=== PATIENT | female | born 1945 | race Caucasian/White ===

== ENCOUNTER 2017-12-31 17:06 | Inpatient (IN) | payer OTHER ==
--- NOTE | 2017-12-31 18:03 | PDOC ---
History of Present Illness - History of Present Illness Initial Comments: 12/31/17 18:47 The patient is a 72 year old with a significant past medical history of diabetes and asthma who presents to the ED for evaluation of lower extremity edema. The patient reports a 2 day history of bilateral calf and feet edema. She denies any previous history of lower extremity edema. She denies any trauma or injuries. Reports swelling is worse after standing for a while, and improves with elevation. Pt also reports pain to left great toe and second toe secondary to her toenails being cut too low. Denies trauma. The patient states her concern for her lower extremity swelling prompted her to visit the ED for further evaluation. Pt denies any other complaints of cp, sob, headache, dizziness, F/C, N/V, and any bowel/urinary symptoms. Denies recent travel or immobilization. Denies calf pain. Allergies: Penicillins Social History: No reported alcohol, cigarette, or drug use. Surgical History: 3 stents. PCP: None. <Ken Sterling - Last Filed: 12/31/17 18:50> <Kavita Norton - Last Filed: 12/31/17 22:01> <Janel Hagan - Last Filed: 01/01/18 00:09> - General Chief Complaint: Pain Stated Complaint: PAIN TO LEFT GREAT TOE AND SECOND TOE AND LEG SWE Time Seen by Provider: 12/31/17 17:16 Past History - Past Medical History Asthma: Yes COPD: No Diabetes: Yes - Immunization History Immunization Up to Date: No - Suicide/Smoking/Psychosocial Hx Smoking History: Never smoked Have you smoked in the past 12 months: No Information on smoking cessation initiated: No Hx Alcohol Use: No Drug/Substance Use Hx: No Substance Use Type: None <Ken Sterling - Last Filed: 12/31/17 18:50> <Kavita Norton - Last Filed: 12/31/17 22:01> <Janel Hagan - Last Filed: 01/01/18 00:09> - Past Medical History Allergies/Adverse Reactions: Allergies Allergy/AdvReac Type Severity Reaction Status Date / Time Penicillins Allergy Hives Verified 12/31/17 17:09 Home Medications: Ambulatory Orders Insulin Degludec [Tresiba Flextouch U-100] 70 unit SQ DAILY 12/31/17 Lovastatin 10 mg PO DAILY 12/31/17 Ramipril 10 mg PO DAILY 12/31/17 Review of Systems - Review of Systems Comments:: 12/31/17 18:47 GENERAL/CONSTITUTIONAL: No fever or chills. No weakness. HEAD, EYES, EARS, NOSE AND THROAT: No change in vision. No ear pain or discharge. No sore throat. GASTROINTESTINAL: No nausea, vomiting, diarrhea or constipation. GENITOURINARY: No dysuria, frequency, or change in urination. CARDIOVASCULAR: No chest pain or shortness of breath. RESPIRATORY: No cough, wheezing, or hemoptysis. MUSCULOSKELETAL: (+)Bilateral calf and feet swelling. (+)Left great toe pain. (+ )Left second toe pain. No neck or back pain. SKIN: No rash NEUROLOGIC: No headache, vertigo, loss of consciousness, or change in strength/ sensation. ENDOCRINE: No increased thirst. No abnormal weight change. HEMATOLOGIC/LYMPHATIC: No anemia, easy bleeding, or history of blood clots. ALLERGIC/IMMUNOLOGIC: No hives or skin allergy. <Nassef,Yomna - Last Filed: 12/31/17 18:50> *Physical Exam - Vital Signs Last Vital Signs Temp Pulse Resp BP Pulse Ox 98 F 92 H 16 157/56 98 12/31/17 17:09 12/31/17 17:09 12/31/17 17:09 12/31/17 17:09 12/31/17 17:09 - Physical Exam Comments: 12/31/17 18:48 GENERAL: Sleeping in stretcher, arousable, well groomed, in no acute distress EYES: PERRLA, EOMI, sclera anicteric, conjunctiva clear NECK: Normal ROM, supple, no lymphadenopathy, JVD, or masses LUNGS: Breath sounds equal, clear to auscultation bilaterally. No wheezes, and no crackles HEART: Regular rate and rhythm, normal S1 and S2, no murmurs, rubs or gallops ABDOMEN: Soft, nontender, normoactive bowel sounds. No guarding, no rebound. No masses EXTREMITIES: 1+ pitting edema bilaterally to proximal calf, symmetric. No calf tenderness. 2+ peripheral pulses. No deformities or evidence of trauma. NEUROLOGICAL: Normal speech, cranial nerves intact, 5/5 strength in all 4 extremities, normal sensation to light touch in all 4 extremities, normal cerebellar exam, normal gait, normal reflexes and tone SKIN: Warm, Dry, normal turgor, no rashes or lesions noted. <NataliashaniceKen - Last Filed: 12/31/17 18:50> - Vital Signs Last Vital Signs Temp Pulse Resp BP Pulse Ox 98 F 87 18 137/57 97 12/31/17 17:09 12/31/17 21:24 12/31/17 21:24 12/31/17 21:24 12/31/17 21:24 <Kavita Norton - Last Filed: 12/31/17 22:01> - Vital Signs Last Vital Signs Temp Pulse Resp BP Pulse Ox 98 F 92 H 16 157/56 98 12/31/17 17:09 12/31/17 17:09 12/31/17 17:09 12/31/17 17:09 12/31/17 17:09 <Janel Hagan - Last Filed: 01/01/18 00:09> ED Treatment Course - ADDITIONAL ORDERS Additional order review: Laboratory Results 12/31/17 12/31/17 12/31/17 08:30 08:30 08:30 PTT (Actin FS) 26.9 Creatine Kinase 163 Creatine Kinase Index 2.8 CK-MB (CK-2) 4.7 H Troponin I < 0.03 12/31/17 08:15 PTT (Actin FS) Creatine Kinase Creatine Kinase Index CK-MB (CK-2) Troponin I 0.09 H - Medications Given in the ED: ED Medications Discontinued Medications Generic Name Dose Route Start Last Admin Trade Name Topher PRN Reason Stop Dose Admin Aspirin 162 mg 12/31/17 20:09 12/31/17 20:15 Asa - PO 12/31/17 20:10 162 mg ONCE ONE Administration Enoxaparin Sodium 80 mg 12/31/17 20:47 12/31/17 21:11 Lovenox - SQ 12/31/17 20:48 80 mg ONCE ONE Administration Metoprolol Tartrate 50 mg 12/31/17 21:17 12/31/17 21:25 Lopressor - PO 12/31/17 21:18 50 mg ONCE ONE Administration <Kavita Norton - Last Filed: 12/31/17 22:01> - ADDITIONAL ORDERS Additional order review: Laboratory Results 12/31/17 12/31/17 08:30 08:15 PTT (Actin FS) 26.9 Troponin I 0.09 H - RADIOLOGY Radiology Studies Ordered: Category Date Time Status CHEST PA & LAT [RAD] Stat Radiology 12/31/17 20:09 Taken - Medications Given in the ED: ED Medications Discontinued Medications Generic Name Dose Route Start Last Admin Trade Name Topher PRN Reason Stop Dose Admin Aspirin 162 mg 12/31/17 20:09 12/31/17 20:15 Asa - PO 12/31/17 20:10 162 mg ONCE ONE Administration Enoxaparin Sodium 80 mg 12/31/17 20:47 12/31/17 21:11 Lovenox - SQ 12/31/17 20:48 80 mg ONCE ONE Administration <Janel Hagan - Last Filed: 01/01/18 00:09> Medical Decision Making - Medical Decision Making 12/31/17 18:10 72yo F hx DM presents to the ED with b/l LE edema for 2 days. Vitals wnl. Exam with 1+ LE symmetric pitting edema to the proximal calves. DDx includes DVT although unlikely b/l vs venous stasis. Will obtain US to r/o DVT and reassess. 12/31/17 19:00 US pending. Pt sleeping comfortably, well appearing Case signed out to overnight attending for further mgmt and dispo. <Ken Sterling - Last Filed: 12/31/17 18:50> - Medical Decision Making Dr. Hagan discussed the case with Dr. Vivar at 21:58. <Kavita Norton - Last Filed: 12/31/17 22:01> - Medical Decision Making 01/01/18 00:05 Pt was signed out to me. Tells me that she has bilat pitting edema. She has never experienced this in the past. Dopplers bilaterally ruled out DVT. Pt's labs that were drawn at her endocrinologists' today were normal. EKG was done, and shows ST depression in V3-V6. She has +troponin 0.09 that was added onto this Afternoon's blood test by the producer arborist manager. Repeat blood troponin at 8:30PM was 0.03 -- trending downwards. Pt will be admitted to telelmetry unit for Acute FL. Hospitalist aware and Cards aware. <Janel Hagan - Last Filed: 01/01/18 00:09> *DC/Admit/Observation/Transfer <Ken Sterling - Last Filed: 12/31/17 18:50> <Kavita Norton - Last Filed: 12/31/17 22:01> - Discharge Dispostion Decision to Admit order: Yes <Janel Hagan - Last Filed: 01/01/18 00:09> Diagnosis at time of Disposition: Myocardial infarction acute, Bilateral leg edema - Discharge Dispostion Condition at time of disposition: Guarded
[2017-12-31] MEDS ORDERED: ASPIRIN 81 MG CHEWABLE TABLETS PO ONE (20:09)
[2017-12-31] MEDS ORDERED: ASPIRIN 81 MG CHEWABLE TABLETS ONE (20:14)
[2017-12-31] MEDS ORDERED: ENOXAPARIN NA (PORCINE) 80 MG/0.8 ML DISP.SYRIN SQ ONE (20:47)
[2017-12-31] MEDS ORDERED: ENOXAPARIN NA (PORCINE) 100 MG/1 ML DISP.SYRIN SQ ONE (21:08)
[2017-12-31] MEDS ORDERED: METOPROLOL TARTRATE 50 MG TABLET (FP) PO ONE (21:17)
[2017-12-31] MEDS ORDERED: METOPROLOL TARTRATE 50 MG TABLET (FP) ONE (21:25)
[2017-12-31] MEDS ORDERED: ATORVASTATIN CA 80 MG TABLET (FP) PO ONE (22:02)
[2017-12-31] MEDS ORDERED: ATORVASTATIN CA 80 MG TABLET (FP) ONE (22:05)
--- NOTE | 2017-12-31 22:06 | CON.CARD ---
Consult Consult Specialty:: cardiology Reason for Consultation:: chest pain; bilateral LE edema; EKG changes; + TNI - History of Present Illness Chief Complaint: new bilateral leg edema; intermittent chest pain History of Present Illness: The patient is a 72 year old woman with a significant past medical history of diabetes, asthma, CAD--> 3 stents (pt says they were down at the same time; includied RAC DE stent 2006 at [facility]), obesity, HTN, hyperlipidemia, who presents to the ED for evaluation of lower extremity edema. The patient reports a 2 day history of bilateral calf and feet edema. She denies any previous history of lower extremity edema. She denies any trauma or injuries. Reports swelling is worse after standing for a while, and improves with elevation. Pt also reports pain to left great toe and second toe secondary to her toenails being cut too low. Denies trauma. The patient states her concern for her lower extremity swelling prompted her to visit the ED for further evaluation. Pt denies any other complaints of cp, sob, headache, dizziness, F/C , N/V, and any bowel/urinary symptoms. Denies recent travel or immobilization. Denies calf pain. Pt is presently living out of her car. Allergies: Penicillins Social History: No reported alcohol, cigarette, or drug use. Surgical History: 3 stents. PCP: None. - History Source History Provided By: Patient, Medical Record Limitations to Obtaining History: No Limitations - Past Medical History Cardio/Vascular: Yes: HTN Reproductive: Yes: Postmenopausal ...: No - Alcohol/Substance Use Hx Alcohol Use: No - Smoking History Smoking history: Never smoked Have you smoked in the past 12 months: No Home Medications - Allergies Allergies/Adverse Reactions: Allergies Allergy/AdvReac Type Severity Reaction Status Date / Time Penicillins Allergy Hives Verified 12/31/17 17:09 - Home Medications Home Medications: Ambulatory Orders Insulin Degludec [Tresiba Flextouch U-100] 70 unit SQ DAILY 12/31/17 Lovastatin 10 mg PO DAILY 12/31/17 Ramipril 10 mg PO DAILY 12/31/17 Family Disease History - Family Disease History Family Disease History: Diabetes: Father, Mother (parents had MIs in their 70s) , Heart Disease: Father, Mother Review of Systems - Review of Systems Constitutional: reports: No Symptoms Eyes: reports: No Symptoms HENT: reports: No Symptoms Neck: reports: No Symptoms Cardiovascular: reports: Chest Pain, Shortness of Breath Respiratory: reports: SOB Gastrointestinal: reports: No Symptoms Genitourinary: reports: No Symptoms Breasts: reports: No Symptoms Reported Musculoskeletal: reports: Joint Pain (knees) Integumentary: reports: No Symptoms Neurological: reports: No Symptoms Hematology/Lymphatic: reports: No Symptoms Psychiatric: reports: No Symptoms - Risk Factors Known Risk Factors: Yes: Age, Diabetes Mellitus, Family History, Hypercholesterolemia, Hypertension, Physical Inactivity, Smoking (former) Vital Signs: Vital Signs Temperature 98 F 12/31/17 17:09 Pulse Rate 87 12/31/17 21:24 Respiratory Rate 18 12/31/17 21:24 Blood Pressure 137/57 12/31/17 21:24 O2 Sat by Pulse Oximetry (%) 97 12/31/17 21:24 Constitutional: Yes: Calm Eyes: Yes: WNL HENT: Yes: WNL Neck: Yes: WNL Respiratory: Yes: Regular Gastrointestinal: Yes: Soft Renal/: No: Anuria Cardiovascular: Yes: WNL JVD: No Carotid Bruit: No PMI: Non-Displaced Heart Sounds: Yes: S1, S2 Murmur: Yes: Systolic Murmur, Grade 1 Musculoskeletal: Yes: Joint Stiffness, Muscle Weakness Extremities: Yes: Cool Edema: Yes Edema: LLE: 1+, RLE: 1+ Peripheral Pulses WNL: Yes Integumentary: Yes: WNL Neurological: Yes: WNL Psychiatric: Yes: Alert, Oriented - Other Data Labs, Other Data: Troponin, BNP 12/31/17 12/31/17 08:15 08:30 Troponin I 0.09 H < 0.03 Troponin, BNP 12/31/17 12/31/17 08:15 08:30 Troponin I 0.09 H < 0.03 Prior Cardiac Procedures: Cardiac Catheterization, PTCA with Stent (RCA: 2007) Imaging - Results Chest X-ray: Image Reviewed (no acute ijnfiltrate) Problem List - Problems (1) Elevated troponin Assessment/Plan: TNI 0.09 (at 08:15)-->0.03 (at 20:05, per medical laboratory technical officer: entered initially in error as being drawn at 08:30). CK on 2nd TNI 163, with MB relative index 2.8; await CK on initial TNI. EKG: NSR, 1st degree AVB; ST depression V3-V6 (r/o lateral wall ischemia). Hx CAD, with "3 stents". R/O NSTEMI, ACS with unstable angina; acute CHF may also contribute to rise in TNI. Plan: ASA 325 mg once, then 81 mg daily. IV heparin or sc Lovenox. Clopidogrel 75 mg daily. On metoprolol (if true hx of bronchial asthma or brochospasm, may have to discontinue beta blockers). Continue ACEI (reportedly on ramipril). High-dose atorvastatin. Transfer to [facility] telemetry or ICU. Serial TNI, CK, and EKGs. ECHO for LVEF, regional wall motion, valve status. Coronary artery evaluation: diagnostic studies depending on evolution of coronary syndrome. Code(s): R74.8 - ABNORMAL LEVELS OF OTHER SERUM ENZYMES (2) Diabetes Assessment/Plan: continue ACEI (pt reportedly on ramipril) for HTN, CAD, and DM (renal protection ). Glucose 134; HGBA1c pending. Code(s): E11.9 - TYPE 2 DIABETES MELLITUS WITHOUT COMPLICATIONS (3) Obesity Code(s): E66.9 - OBESITY, UNSPECIFIED (4) Hyperlipidemia Assessment/Plan: Start high-dose atorvastatin (elevated triglycerides and LDL; + TNI; EKG changes ). Code(s): E78.5 - HYPERLIPIDEMIA, UNSPECIFIED (5) Leukocytosis Assessment/Plan: f/u WBC serially. Code(s): D72.829 - ELEVATED WHITE BLOOD CELL COUNT, UNSPECIFIED (6) Bilateral leg edema Assessment/Plan: LE venous duplex negative for DVT. ECHO for LVEF, wall motion. CHF workup: BNP, BUN/Cr, electrolytes, daily weight, Is and Os. Continue ACEI; diuretic if needed. Code(s): R60.0 - LOCALIZED EDEMA (7) Asthma Code(s): J45.909 - UNSPECIFIED ASTHMA, UNCOMPLICATED (8) HTN (hypertension) Assessment/Plan: On metoprolol (if true bronchial asthma, may need to stop this medications; otherwise, give metoprolol tartrate bid for better 24 hour coverage). Continue ramipril (reportedly on as outpatient; hx HTN, CAD, DM). Code(s): I10 - ESSENTIAL (PRIMARY) HYPERTENSION
[2017-12-31] MEDS ORDERED: HEMOQUE TEST 1 EACH EACH ONE (23:29)
[2018-01-01] MEDS ORDERED: CLOPIDOGREL BISULFATE 300 MG TABLET PO ONE (02:24)
[2018-01-01] MEDS ORDERED: ASPIRIN 81 MG CHEWABLE TABLETS PO ONE (02:26)
--- NOTE | 2018-01-01 04:12 | PN ---
Teaching Attending Note Name of Resident: Emerita Wright ATTENDING PHYSICIAN STATEMENT I saw and evaluated the patient. Chart, data, imaging reviewed. I reviewed the resident's note and discussed the case with the resident. I agree with the resident's findings and plan as documented. SUBJECTIVE: 72 year old woman with a significant past medical history of diabetes, asthma, CAD s/p 3 stents, obesity, HTN, hyperlipidemia. She was sent from [place] to [facility] for suspiscion of NSTEMI and need for telemetry. Pt initially c/o some swelling to her legs for about 3 days and that prompted her to come to ER. She c/o also of some vague shortness of breath and left shoulder pain. OBJECTIVE: Last Vital Signs Temp Pulse Resp BP Pulse Ox 98 F 87 18 137/57 97 12/31/17 17:09 12/31/17 21:24 12/31/17 21:24 12/31/17 21:24 12/31/17 21:24 general- nad, obese heent -at, moist oral mucosa neck -supple, no jvd cv-s1+s2+rrr chest -cta abdomen- obese, bs+ ext-no pedal edema Abnormal Lab Results 12/31/17 12/31/17 12/31/17 08:15 08:30 08:30 CK-MB (CK-2) 4.7 H Troponin I 0.09 H B-Natriuretic Peptide 428.85 H EKG reviewed by me, showed some ST depressions in V3-V6 CXR -reviewed. ASSESSMENT AND PLAN: 72yo woman with possible NSTEMI given +troponin and ST depressions in leads mentioned above -admit to telemetry -trend troponin -transthoracic echo -serial EKGs -cardiology evaluation -NG sublingual prn -bblocker -high dose statin -ASA 325mg po stat, then 81mg po daily -clopidogrel 75mg po daily -lovenox therapeutic dose -see resident note for details cardiac diet
[2018-01-01 04:23] VITALS: BMI 31.2
[2018-01-01] MEDS: INSULIN SLIDING SCALE (NOVOLOG) 1 VIAL SQ SCH ×4 (06:59→21:26)
[2018-01-01 08:03] LABS: HEMATOCRIT 37.1 % (32.4-45.2); HEMOGLOBIN 12.3 GM/dL (10.7-15.3); MCH 28.6 pg (25.7-33.7); MCHC 33.2 g/dl (32.0-36.0); MEAN CELL VOLUME 86.2 fl (80-96); MEAN PLT VOLUME 10.7 fl (7.5-11.1); PLATELET COUNT 245 K/MM3 (134-434); WHITE BLOOD COUNT 6.9 K/mm3 (4.0-10.0)
[2018-01-01 08:18] LABS: CHLORIDE 107 mmol/L (98-107); SODIUM 143 mmol/L (136-145)
[2018-01-01] MEDS ORDERED: NITROGLYCERIN SUBLINGUAL 1/150 0.4 MG TAB ONE (08:30)
[2018-01-01 08:34] LABS: ANION GAP 9 (8-16); BLOOD UREA NITROGEN 14 mg/dL (7-18); CALCIUM 9.8 mg/dL (8.5-10.1); CO2 27 mmol/L (21-32); CREATININE 0.6 mg/dL (0.55-1.02); GLUCOSE,RANDOM 86 mg/dL (74-106)
[2018-01-01 08:44] LABS: MAGNESIUM 2.3 mg/dL (1.8-2.4)
[2018-01-01 08:45] LABS: POTASSIUM 4.5 mmol/L (3.5-5.1)
[2018-01-01] MEDS ORDERED: PT OWN MED DRAWER 7, Y5N ONE (09:31)
[2018-01-01] MEDS: ENOXAPARIN NA (PORCINE) 80 MG/0.8 ML DISP.SYRIN SQ SCH ×2 (09:33→21:06)
[2018-01-01] MEDS: ASPIRIN COATED 81 MG TABLET.EC PO SCH (09:34)
[2018-01-01] MEDS ORDERED: CLOPIDOGREL BISULFATE 75 MG TABLET (FP) PO SCH (10:00)
[2018-01-01] MEDS ORDERED: PNEUMOC 13-VAL CONJ-DIP CRM/PF 0.5 ML DISP.SYRIN IM ONE (10:00)
--- NOTE | 2018-01-01 11:15 | PN ---
Progress Note, Physician Chief Complaint: Pt A&Ox3; had central chest tightness (moderate intensity) earlier this morning , lasting a few minutes. This has occurred a number of times over the past few weeks, both at rest and with exertion. She has a "bad left shoulder", but says this pain is different. History of Present Illness: The patient is a 72 year old white woman with a significant past medical history of diabetes, asthma, CAD--> 3 stents (pt says they were done at the same time; included RCA DE stent 2006 at [facility]), obesity, HTN, hyperlipidemia, who presents to the ED for evaluation of lower extremity edema. The patient reports a 2 day history of bilateral calf and feet edema. She denies any previous history of lower extremity edema. She denies any trauma or injuries. Reports swelling is worse after standing for a while, and improves with elevation. Pt also reports pain to left great toe and second toe secondary to her toenails being cut too close. The patient states her concern for her lower extremity swelling prompted her to visit the ED for further evaluation. Pt denies any other complaints of cp, sob, headache, dizziness, F/C, N/V, and any bowel/urinary symptoms. Denies recent travel or immobilization. Denies calf pain. Pt is presently living out of her car. Allergies: Penicillins Social History: No reported alcohol, cigarette, or drug use. Surgical History: ?3 coronary stents. PCP: None. - Current Medication List Current Medications: Active Medications Aspirin (Ecotrin -) 81 mg PO DAILY [facility] Last Admin: 01/01/18 09:34 Dose: 81 mg Atorvastatin Calcium (Lipitor -) 40 mg PO [facility] Clopidogrel Bisulfate (Plavix -) 75 mg PO DAILY [facility] Last Admin: 01/01/18 09:33 Dose: 75 mg Enoxaparin Sodium (Lovenox -) 80 mg SQ BID [facility] Last Admin: 01/01/18 09:33 Dose: 80 mg Insulin Aspart (Novolog Vial Sliding Scale -) 1 vial SQ ACHS [facility]; Protocol Last Admin: 01/01/18 06:59 Dose: Not Given - Objective Vital Signs: Vital Signs Temperature 98.3 F 01/01/18 08:00 Pulse Rate 92 H 01/01/18 08:00 Respiratory Rate 17 01/01/18 08:36 Blood Pressure 124/59 01/01/18 08:00 O2 Sat by Pulse Oximetry (%) 97 01/01/18 08:36 Constitutional: Yes: Calm Eyes: Yes: WNL HENT: Yes: WNL Neck: Yes: WNL Cardiovascular: Yes: Regular Rate and Rhythm, S1, S2 Respiratory: Yes: Regular Gastrointestinal: Yes: Soft ...Rectal Exam: Yes: Deferred Genitourinary: No: Anuria Breast(s): Yes: WNL Musculoskeletal: Yes: WNL Extremities: Yes: Other Edema: No Peripheral Pulses WNL: Yes Neurological: Yes: WNL Psychiatric: Yes: WNL Labs: CBC, BMP 01/01/18 06:30 01/01/18 06:30 Abnormal Lab Results 12/31/17 01/02/18 01/02/18 08:15 05:30 05:30 Chloride 109 H Anion Gap 7 L BUN 19 H Random Glucose 116 H Hemoglobin A1c % 7.8 H Troponin I 0.09 H Triglycerides 197 H Cholesterol 201 H Problem List - Problems (1) Elevated troponin Assessment/Plan: TNI 0.09 (at 08:15)-->0.03 (at 20:05, per warehouse general laborer: entered initially in error as being drawn at 08:30). CK on 2nd TNI 163, with MB relative index 2.8; await CK on initial TNI. EKG: NSR, 1st degree AVB; ST depression V3-V6 (r/o lateral wall ischemia). Hx CAD, with "3 stents". R/O NSTEMI, ACS with unstable angina; acute CHF may also contribute to mild rise in TNI. Plan: ASA 325 mg once, then 81 mg daily. IV heparin or sc Lovenox. Clopidogrel 75 mg daily; may change to Brilinta. On metoprolol (if true hx of bronchial asthma or brochospasm, may have to discontinue beta blockers; so far no adverse reaction to metoprolol). Continue ACEI (reportedly on ramipril). High-dose atorvastatin. Transfer to [facility] telemetry or ICU. Serial TNI, CK, and EKGs. ECHO for LVEF, regional wall motion, valve status. Coronary artery evaluation: diagnostic studies depending on evolution of coronary syndrome. Code(s): R74.8 - ABNORMAL LEVELS OF OTHER SERUM ENZYMES (2) Diabetes Assessment/Plan: continue ACEI (pt reportedly on ramipril) for HTN, CAD, and DM (renal protection ). Glucose 134; HGBA1c pending. Code(s): E11.9 - TYPE 2 DIABETES MELLITUS WITHOUT COMPLICATIONS (3) Obesity Code(s): E66.9 - OBESITY, UNSPECIFIED (4) Hyperlipidemia Code(s): E78.5 - HYPERLIPIDEMIA, UNSPECIFIED (5) Leukocytosis Code(s): D72.829 - ELEVATED WHITE BLOOD CELL COUNT, UNSPECIFIED (6) Bilateral leg edema Code(s): R60.0 - LOCALIZED EDEMA (7) Asthma Code(s): J45.909 - UNSPECIFIED ASTHMA, UNCOMPLICATED (8) HTN (hypertension) Code(s): I10 - ESSENTIAL (PRIMARY) HYPERTENSION
[2018-01-01] MEDS: RAMIPRIL 2.5 MG CAPSULE (FP) PO SCH (11:27)
--- NOTE | 2018-01-01 12:21 | PN ---
Progress Note (short form) - Note Progress Note: c/o CP that started at rest this AM that relived with NTG. states she has been having this for several months and her doctor was said it was arm pain. Pain is always at rest and was not radiating anywhere assoc with diaphoresis. states what prompted her to the ER was leg swelling. has also been having dyspnea on exertion but unable to quantify how far she walks till she gets symptoms. denies fever, chills, N/V/C/D, weight loss. states she stopped taking plavix because of epistaxis, is willing to try another similar medication but does not want to be on plavix. Current Medications Generic Name Dose Route Start Last Admin Trade Name Mohsenq PRN Reason Stop Dose Admin Aspirin 81 mg 01/01/18 10:00 01/01/18 09:34 Ecotrin - PO 81 mg DAILY [facility] Administration Atorvastatin Calcium 80 mg 01/01/18 22:00 Lipitor - PO HS [facility] Clopidogrel Bisulfate 75 mg 01/01/18 10:00 01/01/18 09:33 Plavix - PO 75 mg DAILY [facility] Administration Enoxaparin Sodium 80 mg 01/01/18 10:00 01/01/18 09:33 Lovenox - SQ 80 mg BID [facility] Administration Insulin Aspart 1 vial 01/01/18 07:00 01/01/18 11:27 Novolog Vial Sliding Scale - SQ Not Given ACHS [facility] Protocol Ramipril 2.5 mg 01/01/18 11:15 01/01/18 11:27 Altace - PO 2.5 mg DAILY [facility] Administration Last Vital Signs Temp Pulse Resp BP Pulse Ox 98.3 F 92 H 17 124/59 97 01/01/18 08:00 01/01/18 08:00 01/01/18 08:36 01/01/18 08:00 01/01/18 08:36 General NAD CV S1 S2 RRR no murmrur/rub/gallop +chest wall tenderness Lungs CTA B/L no wheezing/rales/rhonchi Abdomen soft NT/ND obese Extremities 1+ pitting edema RLE trace LLE CBCD WBC 6.9 K/mm3 (4.0-10.0) 01/01/18 06:30 RBC 4.30 M/mm3 (3.60-5.2) 01/01/18 06:30 Hgb 12.3 GM/dL (10.7-15.3) 01/01/18 06:30 Hct 37.1 % (32.4-45.2) 01/01/18 06:30 MCV 86.2 fl (80-96) 01/01/18 06:30 MCHC 33.2 g/dl (32.0-36.0) 01/01/18 06:30 RDW 14.0 % (11.6-15.6) 01/01/18 06:30 Plt Count 245 K/MM3 (134-434) 01/01/18 06:30 MPV 10.7 fl (7.5-11.1) 01/01/18 06:30 CMP Sodium 143 mmol/L (136-145) 01/01/18 06:30 Potassium 4.5 mmol/L (3.5-5.1) 01/01/18 06:30 Chloride 107 mmol/L (98-107) 01/01/18 06:30 Carbon Dioxide 27 mmol/L (21-32) 01/01/18 06:30 Anion Gap 9 (8-16) 01/01/18 06:30 BUN 14 mg/dL (7-18) 01/01/18 06:30 Creatinine 0.6 mg/dL (0.55-1.02) 01/01/18 06:30 Creat Clearance w eGFR > 60 (>60) 01/01/18 06:30 Calcium 9.8 mg/dL (8.5-10.1) 01/01/18 06:30 A/P 72yo F with PMH DM, HTN, dyslipidemia and CAD s/p 3 stents presented to the ER with B/L LE swelling and found to have NSTEMI 1. NSTEMI- Troponin peaked at 0.09 and now trending down. on full dose lovenox. does not want plavix although she has had no epistaxis since being here. will d/ w cardio about switching to trial of brilinta, on asa, statin, acei. would benefit from cardiac cath after 72H of treatment. will need to verify pt is willing to be compliant with medications. echo pending. continuosu cardiac monitoring 2. B/L edema- as per pt has improved without treatment. doppler negative for DVT 3. DM- controlled. has not required coverage. cont diabetic diet, bgm, iss. hold tresiba 4. Dyspnea- possible due to NSTEMI. does not appear to be in volume overload. saturating well on RA> monitor 5. HTN- controlled. 6. DVT ppx- full dose lovenox Visit type - Emergency Visit Emergency Visit: Yes ED Registration Date: 01/01/18 Care time: The patient presented to the Emergency Department on the above date and was hospitalized for further evaluation of their emergent condition. - New Patient This patient is new to me today: Yes Date on this admission: 01/01/18 - Critical Care Critical Care patient: No - Discharge Referral Referred to [facility] No
--- NOTE | 2018-01-01 14:41 | EKG ---
Test Reason : Blood Pressure : / mmHG Vent. Rate : 091 BPM Atrial Rate : 091 BPM P-R Int : 224 ms QRS Dur : 108 ms QT Int : 404 ms P-R-T Axes : 081 066 091 degrees QTc Int : 496 ms SINUS RHYTHM WITH 1ST DEGREE A-V BLOCK INCOMPLETE RIGHT BUNDLE BRANCH BLOCK PROLONGED QT ABNORMAL ECG WHEN COMPARED WITH ECG OF 01-JAN-2018 02:56, ST NOW DEPRESSED IN ANTERIOR LEADS T WAVE INVERSION NO LONGER EVIDENT IN LATERAL LEADS Confirmed by Shaquille Mcdaniel ([id number]) on 01/01/2018 2:40:37 PM Referred By: Sandee BASS Confirmed By:Shaquille Mcdaniel
--- NOTE | 2018-01-01 14:42 | EKG ---
Test Reason : Blood Pressure : / mmHG Vent. Rate : 084 BPM Atrial Rate : 084 BPM P-R Int : 244 ms QRS Dur : 106 ms QT Int : 382 ms P-R-T Axes : 069 060 123 degrees QTc Int : 451 ms SINUS RHYTHM WITH 1ST DEGREE A-V BLOCK INCOMPLETE RIGHT BUNDLE BRANCH BLOCK ABNORMAL ECG WHEN COMPARED WITH ECG OF 31-DEC-2017 19:57, QUESTIONABLE CHANGE IN QRS AXIS ST NO LONGER DEPRESSED IN ANTERIOR LEADS NONSPECIFIC T WAVE ABNORMALITY, IMPROVED IN INFERIOR LEADS T WAVE INVERSION MORE EVIDENT IN LATERAL LEADS Confirmed by Shaquille Mcdaniel ([id number]) on 01/01/2018 2:41:57 PM Referred By: Samanta MARTINEZ Confirmed By:Shaquille Mcdaniel
--- NOTE | 2018-01-01 15:48 | HP ---
Admitting History and Physical - Admission Chief Complaint: Leg swelling History of Present Illness: Pt is a 72 yo F with a signif PMHx of DM, Asthma, HTN, HLD, CADx3 stents (done at the same time) obesity, who presented to [place] ED for LE edema and pain. The pt describes a history of bilateral calf and feet swelling x2 days. Reports swelling is worse after standing for a while, and improves with elevation. Pt reports left first and second toe pain and swelling after her toenails were cut too low. She reports having severe pressure-like chest pain about 2 days prior that self resolved. In the ED she was noted to have EKG changes and elevated trops, was started on lovenox and and transferred to [facility]. She denies current chest pain, SOB, diaphoresis, n/v or syncope or cough , but acknowledges L arm pain. History Source: Patient, Medical Record Limitations to Obtaining History: No Limitations - Past Medical History Cardiovascular: Yes: CAD (3 prior stents), HTN Pulmonary: Yes: Asthma ...: No - Smoking History Smoking history: Never smoked Have you smoked in the past 12 months: No If you are a former smoker, when did you quit?: 2002 - Alcohol/Substance Use Hx Alcohol Use: No Home Medications - Allergies Allergies/Adverse Reactions: Allergies Allergy/AdvReac Type Severity Reaction Status Date / Time Penicillins Allergy Hives Verified 12/31/17 17:09 - Home Medications Home Medications: Ambulatory Orders Insulin Degludec [Tresiba Flextouch U-100] 70 unit SQ DAILY 12/31/17 Lovastatin 10 mg PO DAILY 12/31/17 Ramipril 10 mg PO DAILY 12/31/17 Family Disease History - Family Disease History Family Disease History: Diabetes: Father, Mother (parents had MIs in their 70s) , Heart Disease: Father, Mother Review of Systems - Review of Systems Constitutional: denies: Chills, Diaphoresis, Loss of Appetite HENT: reports: Epistaxis Neck: denies: Stiffness Cardiovascular: reports: Edema, Shortness of Breath. denies: Chest Pain Respiratory: reports: SOB on Exertion. denies: Wheezing Genitourinary: denies: Dysuria, Hematuria Physical Examination Vital Signs: Initial Vital Signs Temp Pulse Resp BP Pulse Ox 98 F 92 H 16 157/56 98 12/31/17 17:09 12/31/17 17:09 12/31/17 17:09 12/31/17 17:09 12/31/17 17:09 Constitutional: Yes: No Distress, Calm, Obese Eyes: Yes: EOM Intact HENT: Yes: Atraumatic Neck: Yes: Supple Cardiovascular: Yes: S1, S2 Respiratory: Yes: CTA Bilaterally Gastrointestinal: Yes: Soft Edema: LLE: 1+, RLE: 1+ Neurological: Yes: Alert, Oriented. No: Facial Droop, Loss of Sensation ...Motor Strength: WNL, RUE, RLE Psychiatric: Yes: Alert, Oriented Labs: Laboratory Tests 12/31/17 12/31/17 12/31/17 08:15 08:30 08:30 Creatine Kinase Creatine Kinase Index CK-MB (CK-2) Troponin I 0.09 H < 0.03 B-Natriuretic Peptide 428.85 H 12/31/17 08:30 Creatine Kinase 163 Creatine Kinase Index 2.8 CK-MB (CK-2) 4.7 H Troponin I B-Natriuretic Peptide Assessment/Plan Pt is a 72 yo F with a signif PMHx of DM, Asthma, HTN, HLD, CADx3 stents (done at the same time) obesity, who presented to [place] ED for LE edema and pain found to have EKG changes and elevated troponins. R/O NSTEMI Seen by Dr Vivar Elevated trops 0.09>>0.03 EKG-EKG: NSR, 1st degree AVB; ST depression V3-V6 (r/o lateral wall ischemia) . Hx of chest pain, previous stents KRISTIAN score-5 Pt received 162mg ASA, add another 162mg Cont daily ASA 81mg Sq lovenox at 1mg/kg bid-80mg given, continue 80mg bid Clopidogrel 75 mg daily (pt refused clopidogrel says she has nose bleeds) Cont metoprolol Cont ramipril Cont atorvastatin- 80mg daily Serial EKGs and trops ECHO Stress test when stable Cardiac monitoring CBC, CMP CAD with 3 stents See above Asthma Not in exacerbation Monitor on BB DM BGM ACHS ISS ACHS Diabetic diet HTN Cont metoprolol and ramipril HLD Cont atorvastatin- 80mg daily FEN No standing fluids Monitor electrolytes Sodium controlled diet PPx On lovenox Dispo Tele Visit type - Emergency Visit Emergency Visit: Yes ED Registration Date: 01/01/18 Care time: The patient presented to the Emergency Department on the above date and was hospitalized for further evaluation of their emergent condition. - New Patient This patient is new to me today: Yes Date on this admission: 01/01/18 - Critical Care Critical Care patient: No Hospitalist Screening - Colonoscopy Questionnaire Colonoscopy Questionnaire: Colonoscopy Questionnaire - Patient: 50 - 75 years old and never had a screening colonoscopy: Yes History of colon or rectal polyps, or CA: Unknown History of IBD, Crohn's disease or UC: Unknown History of abdominal radiation therapy as a child: Unknown - Relative: 1 with colon or rectal CA, or polyps at age 60 or younger: Unknown Colon or rectal CA diagnosed at age 45 or younger: Unknown Multiple relatives with colon or rectal CA: Unknown - Outcome: Screening Result: Positive Screen
[2018-01-01] MEDS: ATORVASTATIN CA 80 MG TABLET (FP) PO SCH (21:08)
[2018-01-01] MEDS ORDERED: INSULIN (NOVOLOG) ASPART 100 UNITS/ML 10ML VIAL ONE (21:54)
[2018-01-01] MEDS ORDERED: ATORVASTATIN CA 40 MG TABLET (FP) PO SCH (22:00)
[2018-01-02 06:50] LABS: HEMATOCRIT 37.9 % (32.4-45.2); HEMOGLOBIN 12.5 GM/dL (10.7-15.3); MCH 28.4 pg (25.7-33.7); MCHC 33.1 g/dl (32.0-36.0); MEAN PLT VOLUME 10.6 fl (7.5-11.1); PLATELET COUNT 230 K/MM3 (134-434); RBC 4.41 M/mm3 (3.60-5.2); RDW 13.9 % (11.6-15.6)
[2018-01-02] MEDS: INSULIN SLIDING SCALE (NOVOLOG) 1 VIAL SQ SCH ×4 (06:50→21:33)
[2018-01-02 07:19] LABS: ANION GAP 7 (8-16); BLOOD UREA NITROGEN 19 mg/dL (7-18); CALCIUM 9.1 mg/dL (8.5-10.1); CHLORIDE 109 mmol/L (98-107); CO2 28 mmol/L (21-32); CREATININE 0.6 mg/dL (0.55-1.02); GLUCOSE,RANDOM 116 mg/dL (74-106); POTASSIUM 4.2 mmol/L (3.5-5.1); SODIUM 144 mmol/L (136-145)
[2018-01-02] MEDS ORDERED: PT OWN MED DRAWER 7, Y5N ONE ×2 (08:33→20:39)
[2018-01-02] MEDS: RAMIPRIL 2.5 MG CAPSULE (FP) PO SCH (09:02)
[2018-01-02] MEDS: ENOXAPARIN NA (PORCINE) 80 MG/0.8 ML DISP.SYRIN SQ SCH ×2 (09:02→21:33)
[2018-01-02] MEDS: ASPIRIN COATED 81 MG TABLET.EC PO SCH (09:02)
[2018-01-02] MEDS: TICAGRELOR 60 MG TABLET PO SCH ×2 (09:03→21:31)
[2018-01-02 09:11] LABS: CHOLESTEROL 201 mg/dL (50-200); TRIGLYCERIDES 197 mg/dL (35-160)
[2018-01-02 09:12] LABS: HDL CHOLESTEROL 50 mg/dL (40-60)
--- NOTE | 2018-01-02 11:43 | PN ---
Teaching Attending Note Name of Resident: Roland Barron ATTENDING PHYSICIAN STATEMENT I saw and evaluated the patient. I reviewed the resident's note and discussed the case with the resident. I agree with the resident's findings and plan as documented. SUBJECTIVE:asymptomatic. no recurrent episodes of CP. denies dyspnea, palpitations, N/V/C/D, no epistaxis OBJECTIVE: Last Vital Signs Temp Pulse Resp BP Pulse Ox 98 F 100 H 18 142/62 98 01/02/18 09:33 01/02/18 09:33 01/02/18 09:33 01/02/18 09:33 01/02/18 09:00 General NAD CV S1 S2 RRR no murmur/rub/gallop +chest wall tenderness ASSESSMENT AND PLAN: 72yo F with PMH DM, HTN, dyslipidemia and CAD s/p 3 stents presented to the ER with B/L LE swelling and found to have NSTEMI 1. NSTEMI- Troponin peaked at 0.09 and now trending down. on full dose lovenox. on brilinta, no acute events. would benefit from cath but will need to determine social situation as pt is homeless. will need to verify if pt will be able to take medications and afford them. echo pending. possible cardiac cath. 2. B/L edema- as per pt has improved without treatment. doppler negative for DVT 3. DM- controlled. has not required coverage. cont diabetic diet, bgm, iss. hold tresiba 4. Dyspnea- possible due to NSTEMI. does not appear to be in volume overload. saturating well on RA> monitor 5. HTN- controlled. 6. DVT ppx- full dose lovenox
--- NOTE | 2018-01-02 12:44 | PN ---
Physical Exam: SUBJECTIVE: Patient seen and examined at bedside. No chest pain, shortness of breath, or palpitation overnight. No acute event noted on monitor. OBJECTIVE: Vital Signs Period Temp Pulse Resp BP Sys/Wells Pulse Ox Last 24 Hr 97.9 F-98.3 F 94-100 18-20 137-159/62-70 98-98 GENERAL: The patient is awake, alert, and fully oriented, in no acute distress. LUNGS: Breath sounds equal, clear to auscultation bilaterally, no wheezes, no crackles, no accessory muscle use. HEART: Regular rate and rhythm, S1, S2 without murmur, rub or gallop. ABDOMEN: Soft, nontender, nondistended, normoactive bowel sounds, no guarding, no rebound, no hepatosplenomegaly, no masses Laboratory Results - last 24 hr 12/31/17 01/01/18 01/01/18 08:15 16:57 21:15 WBC RBC Hgb Hct MCV MCH MCHC RDW Plt Count MPV Sodium Potassium Chloride Carbon Dioxide Anion Gap BUN Creatinine Creat Clearance w eGFR POC Glucometer 107 156 Random Glucose Hemoglobin A1c % Calcium Troponin I Cancelled Triglycerides Cholesterol Total LDL Cholesterol HDL Cholesterol TSH 01/02/18 01/02/18 01/02/18 05:30 05:30 05:30 WBC 6.0 RBC 4.41 Hgb 12.5 Hct 37.9 MCV 86.0 MCH 28.4 MCHC 33.1 RDW 13.9 Plt Count 230 MPV 10.6 Sodium 144 Potassium 4.2 Chloride 109 H Carbon Dioxide 28 Anion Gap 7 L BUN 19 H Creatinine 0.6 Creat Clearance w eGFR > 60 POC Glucometer Random Glucose 116 H Hemoglobin A1c % 7.8 H Calcium 9.1 Troponin I Triglycerides 197 H Cholesterol 201 H Total LDL Cholesterol Cancelled HDL Cholesterol 50 TSH 1.04 01/02/18 01/02/18 06:47 11:57 WBC RBC Hgb Hct MCV MCH MCHC RDW Plt Count MPV Sodium Potassium Chloride Carbon Dioxide Anion Gap BUN Creatinine Creat Clearance w eGFR POC Glucometer 133 96 Random Glucose Hemoglobin A1c % Calcium Troponin I Triglycerides Cholesterol Total LDL Cholesterol HDL Cholesterol TSH Active Medications Generic Name Dose Route Start Last Admin Trade Name Freq PRN Reason Stop Dose Admin Aspirin 81 mg 01/01/18 10:00 01/02/18 09:02 Ecotrin - PO 81 mg DAILY NIRMAL Administration Atorvastatin Calcium 80 mg 07/14/18 22:00 01/01/18 21:08 Lipitor - PO 80 mg HS NIRMAL Administration Enoxaparin Sodium 80 mg 01/01/18 10:00 01/02/18 09:02 Lovenox - SQ 80 mg BID NIRMAL Administration Insulin Aspart 1 vial 01/01/18 07:00 01/02/18 11:58 Novolog Vial Sliding Scale - SQ Not Given ACHS [facility] Protocol Ramipril 2.5 mg 01/01/18 11:15 01/02/18 09:02 Altace - PO 2.5 mg DAILY NIRMAL Administration Ticagrelor 60 mg 01/02/18 10:00 01/02/18 09:03 Brilinta PO 60 mg BID NIRMAL Administration ASSESSMENT/PLAN: 72 yo F h/o DM, HTN, dyslipidemia and CAD s/p 3 stents admitted to [facility] for NSTEMI NSTEMI - stable - cont. asa, brilinta, ISACC-i, lipitor - will determine stress test/cath on Wednesday after discussing with socially responsible investment adviser - f/u ECHO DM - controlled off insulin during hospitalization HTN - Stable and controlled on med Roland Barron PGY3 [phone] Visit type - Emergency Visit Emergency Visit: No - New Patient This patient is new to me today: Yes Date on this admission: 01/02/18 - Critical Care Critical Care patient: No
[2018-01-02] MEDS ORDERED: INSULIN (NOVOLOG) ASPART 100 UNITS/ML 10ML VIAL ONE (20:37)
[2018-01-02] MEDS: ATORVASTATIN CA 80 MG TABLET (FP) PO SCH (21:32)
[2018-01-02] MEDS ORDERED: METOPROLOL TARTRATE 25 MG TABLET (FP) PO SCH (22:00)
--- NOTE | 2018-01-03 00:04 | PN ---
Progress Note, Physician Chief Complaint: Pt A&Ox3; walking in room; no chest pain or dyspnea. History of Present Illness: The patient is a 72 year old white woman with a significant past medical history of diabetes, asthma, CAD--> 3 stents (pt says they were done at the same time; included RCA DE stent 2006 at [facility]), obesity, HTN, hyperlipidemia, who presents to the ED for evaluation of lower extremity edema. The patient reports a 2 day history of bilateral calf and feet edema. She denies any previous history of lower extremity edema. She denies any trauma or injuries. Reports swelling is worse after standing for a while, and improves with elevation. Pt also reports pain to left great toe and second toe secondary to her toenails being cut too close. The patient states her concern for her lower extremity swelling prompted her to visit the ED for further evaluation. Pt denies any other complaints of cp, sob, headache, dizziness, F/C, N/V, and any bowel/urinary symptoms. Denies recent travel or immobilization. Denies calf pain. Pt is presently living out of her car. Allergies: Penicillins Social History: No reported alcohol, cigarette, or drug use. Surgical History: ?3 coronary stents. PCP: None. - Current Medication List Current Medications: Active Medications Aspirin (Ecotrin -) 81 mg PO DAILY [facility] Last Admin: 01/02/18 09:02 Dose: 81 mg Atorvastatin Calcium (Lipitor -) 80 mg PO HS [facility] Last Admin: 01/02/18 21:32 Dose: 80 mg Enoxaparin Sodium (Lovenox -) 80 mg SQ BID [facility] Last Admin: 01/02/18 21:33 Dose: 80 mg Insulin Aspart (Novolog Vial Sliding Scale -) 1 vial SQ ACHS [facility]; Protocol Last Admin: 01/02/18 21:33 Dose: Not Given Metoprolol Tartrate (Lopressor -) 12.5 mg PO BID [facility] Last Admin: 01/02/18 21:33 Dose: 12.5 mg Ramipril (Altace -) 2.5 mg PO DAILY [facility] Last Admin: 01/02/18 09:02 Dose: 2.5 mg Ticagrelor (Brilinta) 60 mg PO BID [facility] Last Admin: 01/02/18 21:31 Dose: 60 mg - Objective Vital Signs: Vital Signs Temperature 98.3 F 01/02/18 17:00 Pulse Rate 100 H 01/02/18 17:00 Respiratory Rate 18 01/02/18 17:00 Blood Pressure 132/75 01/02/18 17:00 O2 Sat by Pulse Oximetry (%) 98 01/02/18 09:00 Constitutional: Yes: No Distress Eyes: Yes: WNL HENT: Yes: WNL Neck: Yes: WNL Cardiovascular: Yes: S1, S2, S4 Respiratory: Yes: WNL Gastrointestinal: Yes: Soft, Abdomen, Obese ...Rectal Exam: Yes: Deferred Genitourinary: No: Anuria Breast(s): Yes: WNL Musculoskeletal: Yes: WNL Extremities: Yes: WNL Edema: No Peripheral Pulses WNL: Yes Neurological: Yes: WNL Psychiatric: Yes: WNL Labs: CBC, BMP 01/02/18 05:30 01/02/18 05:30 Abnormal Lab Results 12/31/17 01/02/18 01/02/18 08:15 05:30 05:30 Chloride 109 H Anion Gap 7 L BUN 19 H Random Glucose 116 H Hemoglobin A1c % 7.8 H Troponin I 0.09 H Triglycerides 197 H Cholesterol 201 H - ....Imaging Chest X-ray: Image Reviewed (no acute pathology) Other: Image Reviewed (telemetry: NSR; frequent APCs and PVCs) Problem List - Problems (1) Elevated troponin Assessment/Plan: TNI 0.09 maximum; CK MB rel index low. EKG: NSR, 1st degree AVB; ST depression V3-V6 (r/o anterior and ateral wall ischemia). Hx CAD, with "3 stents". R/O ACS with unstable angina; acute CHF may also contribute to mild rise in TNI. Plan: Obtain prior cardiac workup results. On ASA, Lovenox, Brilinta, atorvastatin (she was on ?lovastatin 10 mg daily at home). May increase ramipril (was on 10 mg daily at home). Will restart metoprolol (frequent etopic beats); observe for pulmonary compromise (and consider pulmonary workup for hx "asthma"). ECHO for LVEF, regional wall motion. As pointed out by Dr. Barron, pt's current home situation (had been living in shelters, then at a hotel; [place] must be addressed for optimum health , particularly if she will require coronary angiogram and its post-procedure requirements. Code(s): R74.8 - ABNORMAL LEVELS OF OTHER SERUM ENZYMES (2) Diabetes Assessment/Plan: continue ACEI (pt reportedly on ramipril) for HTN, CAD, and DM (renal protection ). Glucose 134; HGBA1c pending. Code(s): E11.9 - TYPE 2 DIABETES MELLITUS WITHOUT COMPLICATIONS (3) Obesity Code(s): E66.9 - OBESITY, UNSPECIFIED (4) Hyperlipidemia Assessment/Plan: Start high-dose atorvastatin (elevated triglycerides and LDL; + TNI; EKG changes ). Code(s): E78.5 - HYPERLIPIDEMIA, UNSPECIFIED (5) Leukocytosis Assessment/Plan: f/u WBC serially. Code(s): D72.829 - ELEVATED WHITE BLOOD CELL COUNT, UNSPECIFIED (6) Bilateral leg edema Assessment/Plan: LE venous duplex negative for DVT. ECHO for LVEF, wall motion. CHF workup: BNP, BUN/Cr, electrolytes, daily weight, Is and Os. Continue ACEI; diuretic if needed. Code(s): R60.0 - LOCALIZED EDEMA (7) Asthma Code(s): J45.909 - UNSPECIFIED ASTHMA, UNCOMPLICATED (8) HTN (hypertension) Assessment/Plan: On metoprolol (restarted metoprolol tartrate bid for better 24 hour coverage, frequent ectopic beats). Continue ramipril (was on 10 mg daily at home). F/u ECHO. Code(s): I10 - ESSENTIAL (PRIMARY) HYPERTENSION
[2018-01-03] MEDS: INSULIN SLIDING SCALE (NOVOLOG) 1 VIAL SQ SCH ×4 (06:29→21:32)
[2018-01-03 06:50] LABS: ANION GAP 7 (8-16); BLOOD UREA NITROGEN 18 mg/dL (7-18); CALCIUM 9.9 mg/dL (8.5-10.1); CHLORIDE 107 mmol/L (98-107); CO2 28 mmol/L (21-32); CREATININE 0.6 mg/dL (0.55-1.02); GLUCOSE,RANDOM 124 mg/dL (74-106); MAGNESIUM 2.4 mg/dL (1.8-2.4); POTASSIUM 4.4 mmol/L (3.5-5.1); SODIUM 142 mmol/L (136-145)
[2018-01-03] MEDS ORDERED: RAMIPRIL 5 MG CAPSULE (FP) PO SCH (07:32)
--- NOTE | 2018-01-03 08:55 | PN ---
Progress Note, Physician History of Present Illness: The patient is a 72 year old white woman with a significant past medical history of diabetes, asthma, CAD--> 3 stents (pt says they were done at the same time; included RCA DE stent 2006 at [facility]), obesity, HTN, hyperlipidemia, who presents to the ED for evaluation of lower extremity edema. The patient reports a 2 day history of bilateral calf and feet edema. She denies any previous history of lower extremity edema. She denies any trauma or injuries. Reports swelling is worse after standing for a while, and improves with elevation. Pt also reports pain to left great toe and second toe secondary to her toenails being cut too close. The patient states her concern for her lower extremity swelling prompted her to visit the ED for further evaluation. Pt denies any other complaints of cp, sob, headache, dizziness, F/C, N/V, and any bowel/urinary symptoms. Denies recent travel or immobilization. Denies calf pain. Pt is presently living out of her car. - Current Medication List Current Medications: Active Medications Aspirin (Ecotrin -) 81 mg PO DAILY [facility] Last Admin: 01/02/18 09:02 Dose: 81 mg Atorvastatin Calcium (Lipitor -) 80 mg PO HS [facility] Last Admin: 01/02/18 21:32 Dose: 80 mg Enoxaparin Sodium (Lovenox -) 80 mg SQ BID [facility] Last Admin: 01/02/18 21:33 Dose: 80 mg Insulin Aspart (Novolog Vial Sliding Scale -) 1 vial SQ ACHS [facility]; Protocol Last Admin: 01/03/18 06:29 Dose: Not Given Metoprolol Tartrate (Lopressor -) 25 mg PO BID [facility] Ramipril (Altace -) 5 mg PO DAILY [facility] Ticagrelor (Brilinta) 60 mg PO BID [facility] Last Admin: 01/02/18 21:31 Dose: 60 mg - Objective Vital Signs: Vital Signs Temperature 98.3 F 01/03/18 05:26 Pulse Rate 100 H 01/03/18 05:26 Respiratory Rate 20 01/03/18 08:03 Blood Pressure 180/89 01/03/18 05:26 O2 Sat by Pulse Oximetry (%) 100 01/03/18 08:03 Eyes: Yes: WNL, Conjunctiva Clear, EOM Intact HENT: Yes: WNL, Atraumatic, Normocephalic Neck: Yes: WNL, Supple, Trachea Midline Cardiovascular: Yes: WNL, Regular Rate and Rhythm Respiratory: Yes: WNL, Regular, CTA Bilaterally Gastrointestinal: Yes: WNL, Normal Bowel Sounds Genitourinary: Yes: WNL Musculoskeletal: Yes: WNL Extremities: Yes: WNL Edema: No Integumentary: Yes: WNL Neurological: Yes: WNL, Alert, Oriented ...Motor Strength: WNL Psychiatric: Yes: WNL Labs: CBC, BMP 01/02/18 05:30 01/03/18 05:30 Assessment/Plan - Problems (1) Elevated troponin Assessment/Plan: TNI 0.09 maximum; CK MB rel index low. EKG: NSR, 1st degree AVB; ST depression V3-V6 (r/o anterior and ateral wall ischemia). Hx CAD, with "3 stents". R/O ACS with unstable angina; acute CHF may also contribute to mild rise in TNI. Plan: Obtain prior cardiac workup results. On ASA, Lovenox, Brilinta, atorvastatin (she was on ?lovastatin 10 mg daily at home). May increase ramipril (was on 10 mg daily at home). Will restart metoprolol (frequent etopic beats); observe for pulmonary compromise (and consider pulmonary workup for hx "asthma"). ECHO for LVEF, regional wall motion. As pointed out by Dr. Barron, pt's current home situation (had been living in shelters, then at a hotel; [place] must be addressed for optimum health , particularly if she will require coronary angiogram and its post-procedure requirements. Code(s): R74.8 - ABNORMAL LEVELS OF OTHER SERUM ENZYMES (2) Diabetes Assessment/Plan: continue ACEI (pt reportedly on ramipril) for HTN, CAD, and DM (renal protection ). Glucose 134; HGBA1c pending. Code(s): E11.9 - TYPE 2 DIABETES MELLITUS WITHOUT COMPLICATIONS (3) Obesity Code(s): E66.9 - OBESITY, UNSPECIFIED (4) Hyperlipidemia Assessment/Plan: Start high-dose atorvastatin (elevated triglycerides and LDL; + TNI; EKG changes ). Code(s): E78.5 - HYPERLIPIDEMIA, UNSPECIFIED (5) Leukocytosis Assessment/Plan: f/u WBC serially. Code(s): D72.829 - ELEVATED WHITE BLOOD CELL COUNT, UNSPECIFIED (6) Bilateral leg edema Assessment/Plan: LE venous duplex negative for DVT. ECHO for LVEF, wall motion. CHF workup: BNP, BUN/Cr, electrolytes, daily weight, Is and Os. Continue ACEI; diuretic if needed. Code(s): R60.0 - LOCALIZED EDEMA (7) Asthma Code(s): J45.909 - UNSPECIFIED ASTHMA, UNCOMPLICATED (8) HTN (hypertension) Assessment/Plan: On metoprolol (restarted metoprolol tartrate bid for better 24 hour coverage, frequent ectopic beats). Continue ramipril (was on 10 mg daily at home). F/u ECHO. Code(s): I10 - ESSENTIAL (PRIMARY) HYPERTENSION
[2018-01-03] MEDS ORDERED: PT OWN MED DRAWER 7, Y5N ONE ×2 (08:56→21:15)
[2018-01-03] MEDS: ASPIRIN COATED 81 MG TABLET.EC PO SCH (09:19)
[2018-01-03] MEDS: METOPROLOL TARTRATE 25 MG TABLET (FP) PO SCH ×2 (09:19→21:20)
[2018-01-03] MEDS: TICAGRELOR 60 MG TABLET PO SCH ×2 (09:20→21:20)
[2018-01-03] MEDS: ENOXAPARIN NA (PORCINE) 80 MG/0.8 ML DISP.SYRIN SQ SCH ×2 (09:21→21:20)
--- NOTE | 2018-01-03 13:14 | PN ---
Teaching Attending Note Name of Resident: Shaggy Caicedo ATTENDING PHYSICIAN STATEMENT I saw and evaluated the patient. I reviewed the resident's note and discussed the case with the resident. I agree with the resident's findings and plan as documented. SUBJECTIVE:asymptomatic. no repeat episods of CP. denies fever, chills, palpitations, N/V/C/D OBJECTIVE: Last Vital Signs Temp Pulse Resp BP Pulse Ox 98.3 F 100 H 20 180/89 100 01/03/18 05:26 01/03/18 05:26 01/03/18 08:03 01/03/18 05:26 01/03/18 08:03 General NAD CV S1 S2 RRR no murmur/rub/gallop no chest wall tenderness ASSESSMENT AND PLAN: 72yo F with PMH DM, HTN, dyslipidemia and CAD s/p 3 stents presented to the ER with B/L LE swelling and found to have NSTEMI 1. NSTEMI- Troponin peaked at 0.09 and now trending down. on full dose lovenox. on brilinta, no acute events. likely not doing cardiac cath at this time in setting of patient social situation and ability for pt to comply with medications and follow up. echo pending. will optimize BP meds at this time. increase metoprolol and rampril. titrate up as tolerated. stressed importance of compliance and follow up with circulation crew leader and PMD to patient 2. B/L edema- as per pt has improved without treatment. doppler negative for DVT 3. DM- controlled. has not required coverage. cont diabetic diet, bgm, iss. hold tresiba 4. Dyspnea- possible due to NSTEMI. does not appear to be in volume overload. saturating well on RA. no events while on betablocker 5. HTN- controlled. 6. DVT ppx- full dose lovenox 7. medications being optimized anticipate discharge in 24-48H if no further interventions planned
[2018-01-03] MEDS ORDERED: RAMIPRIL 5 MG CAPSULE (FP) PO ONE (15:00)
--- NOTE | 2018-01-03 19:27 | PN ---
Physical Exam: SUBJECTIVE: Patient seen and examined OBJECTIVE: Vital Signs Period Temp Pulse Resp BP Sys/Wells Pulse Ox Last 24 Hr 98.2 F-98.5 F 86-100 20-20 126-185/51-89 100-100 GENERAL: The patient is awake, alert, and fully oriented, in no acute distress. HEAD: Normal with no signs of trauma. EYES: PERRL, extraocular movements intact, sclera anicteric, conjunctiva clear. No ptosis. ENT: Ears normal, nares patent, oropharynx clear without exudates, moist mucous membranes. NECK: Trachea midline, full range of motion, supple. LUNGS: Breath sounds equal, clear to auscultation bilaterally, no wheezes, no crackles, no accessory muscle use. HEART: Regular rate and rhythm, S1, S2 without murmur, rub or gallop. ABDOMEN: Soft, nontender, nondistended, normoactive bowel sounds, no guarding, no rebound, no hepatosplenomegaly, no masses. EXTREMITIES: 2+ pulses, warm, well-perfused, no edema. NEUROLOGICAL: Cranial nerves II through XII grossly intact. Normal speech, gait not observed. PSYCH: Normal mood, normal affect. SKIN: Warm, dry, normal turgor, no rashes or lesions noted Laboratory Results - last 24 hr 01/02/18 01/03/18 01/03/18 21:30 05:30 05:33 Sodium 142 Potassium 4.4 Chloride 107 Carbon Dioxide 28 Anion Gap 7 L BUN 18 Creatinine 0.6 Creat Clearance w eGFR > 60 POC Glucometer 171 131 Random Glucose 124 H Calcium 9.9 Magnesium 2.4 01/03/18 01/03/18 11:39 17:20 Sodium Potassium Chloride Carbon Dioxide Anion Gap BUN Creatinine Creat Clearance w eGFR POC Glucometer 150 148 Random Glucose Calcium Magnesium Active Medications Current Medications Aspirin (Ecotrin -) 81 mg PO DAILY [facility] Last Admin: 01/03/18 09:19 Dose: 81 mg Atorvastatin Calcium (Lipitor -) 80 mg PO HS [facility] Last Admin: 01/02/18 21:32 Dose: 80 mg Enoxaparin Sodium (Lovenox -) 80 mg SQ BID [facility] Last Admin: 01/03/18 09:21 Dose: 80 mg Insulin Aspart (Novolog Vial Sliding Scale -) 1 vial SQ ACHS [facility]; Protocol Last Admin: 01/03/18 17:20 Dose: Not Given Metoprolol Tartrate (Lopressor -) 25 mg PO BID [facility] Last Admin: 01/03/18 09:19 Dose: 25 mg Ramipril (Altace -) 10 mg PO DAILY [facility] Ticagrelor (Brilinta) 60 mg PO BID [facility] Last Admin: 01/03/18 09:20 Dose: 60 mg ASSESSMENT/PLAN: Pt is a 72 yo F with a signif PMHx of DM, Asthma, HTN, HLD, CADx3 stents (done at the same time) obesity, who presented to [place] ED for LE edema and pain found to have EKG changes and elevated troponins. #R/O NSTEMI -Seen by Dr Vivar- Not good candidate for catherization b/c of Pt.s social situation of being homeless and concern about medication compliance as well a safety after procedure. -Elevated trops 0.09>>0.03 -EKG-EKG: NSR, 1st degree AVB; ST depression V3-V6 (r/o lateral wall ischemia ). -Hx of chest pain, previous stents -KRISTIAN score-5 -Pt received 162mg ASA, add another 162mg -Cont daily ASA 81mg -Sq lovenox at 1mg/kg bid-80mg given, continue 80mg bid -Brillinta 60 mg daily (pt refused clopidogrel says she has nose bleeds) -Increase metoprolol to 25 mg BID to medically optimize Pt. -Increase ramipril to 10 mg to medically optimize Pt. -Cont atorvastatin- 80mg daily -Troponins trending down, peaked at 0.09 -Cardiac monitoring -Chest pain has resolved #CAD with 3 stents See above #ALYSSA -Cr: stable at 1.3- likely 2/2 to diuresis -monitor w/ CMP #Leg Edema -resolved as per Pt. -Doppler negavtive for DVT #Asthma Not in exacerbation Monitor on BB #DM -BGM ACHS -ISS ACHS- has not needed insulin -Diabetic diet -Held Tresiba and Trulicity -HgBA1c: 7.8% #HTN Increased Metoprolol and Ramipril #HLD Cont atorvastatin- 80mg daily #FEN No standing fluids Monitor electrolytes Sodium controlled diet #PPx On lovenox #Dispo -Tele -pending D/C tomorrow to home Visit type - Emergency Visit Emergency Visit: Yes ED Registration Date: 01/01/18 Care time: The patient presented to the Emergency Department on the above date and was hospitalized for further evaluation of their emergent condition. - New Patient This patient is new to me today: No - Critical Care Critical Care patient: No - Discharge Referral Referred to [facility] Med P.C.: No
--- NOTE | 2018-01-03 20:11 | EKG ---
Test Reason : Blood Pressure : / mmHG Vent. Rate : 099 BPM Atrial Rate : 099 BPM P-R Int : 210 ms QRS Dur : 108 ms QT Int : 376 ms P-R-T Axes : -13 -04 -24 degrees QTc Int : 482 ms SINUS RHYTHM WITH 1ST DEGREE A-V BLOCK INCOMPLETE RIGHT BUNDLE BRANCH BLOCK LEFT VENTRICULAR HYPERTROPHY WITH REPOLARIZATION ABNORMALITY ABNORMAL ECG WHEN COMPARED WITH ECG OF 01-FEB-2005 01:44, MD INTERVAL HAS INCREASED ST NO LONGER ELEVATED IN INFERIOR LEADS ST NOW DEPRESSED IN ANTEROLATERAL LEADS NONSPECIFIC T WAVE ABNORMALITY NOW EVIDENT IN INFERIOR LEADS Confirmed by MD LINDA, FELISA ([id number]) on 01/03/2018 8:10:55 PM Referred By: Confirmed By:FELISA MCKEON MD
[2018-01-03] MEDS: ATORVASTATIN CA 80 MG TABLET (FP) PO SCH (21:20)
[2018-01-04 07:19] LABS: ANION GAP 10 (8-16); BLOOD UREA NITROGEN 23 mg/dL (7-18); CALCIUM 9.4 mg/dL (8.5-10.1); CHLORIDE 107 mmol/L (98-107); CO2 26 mmol/L (21-32); CREATININE 0.7 mg/dL (0.55-1.02); GLUCOSE,RANDOM 131 mg/dL (74-106); MAGNESIUM 2.3 mg/dL (1.8-2.4); PHOSPHOROUS 4.2 mg/dL (2.5-4.9); POTASSIUM 4.4 mmol/L (3.5-5.1); SODIUM 143 mmol/L (136-145)
[2018-01-04] MEDS ORDERED: PT OWN MED DRAWER 7, Y5N ONE (09:37)
[2018-01-04] MEDS: ASPIRIN COATED 81 MG TABLET.EC PO SCH (09:40)
[2018-01-04] MEDS: RAMIPRIL 5 MG CAPSULE (FP) PO SCH (09:41)
[2018-01-04] MEDS: ENOXAPARIN NA (PORCINE) 80 MG/0.8 ML DISP.SYRIN SQ SCH (09:41)
[2018-01-04] MEDS: TICAGRELOR 60 MG TABLET PO SCH ×2 (09:41→21:50)
[2018-01-04] MEDS: METOPROLOL TARTRATE 25 MG TABLET (FP) PO SCH ×2 (09:42→21:50)
[2018-01-04] MEDS: INSULIN SLIDING SCALE (NOVOLOG) 1 VIAL SQ SCH ×4 (12:23→21:49)
--- NOTE | 2018-01-04 14:12 | PN ---
Teaching Attending Note Name of Resident: Shaggy Caicedo ATTENDING PHYSICIAN STATEMENT I saw and evaluated the patient. I reviewed the resident's note and discussed the case with the resident. I agree with the resident's findings and plan as documented with exceptions below. SUBJECTIVE: Patient seen and examined, no further chest pain. Leg symptoms and breathing improved. Reports good exertional capacity till 2 weeks prior when started noticing chest pain, dyspnea and leg swelling. OBJECTIVE: Vital Signs Period Temp Pulse Resp BP Sys/Wells Pulse Ox Last 24 Hr 97.7 F-98.9 F 84-95 18-20 107-145/51-80 97-98 Intake & Output 01/01/18 01/02/18 01/03/18 01/04/18 23:59 23:59 23:59 23:59 Intake Total 740 530 960 100 Balance 740 530 960 100 Weight 176 lb 6.4 oz General: sitting in bed having lunch, no acute distress Chest: CTAB, or rales or wheezing Abdomen:Soft, obese, NT Extremities: trace to none pedal edema Home Medications Medication Instructions Recorded Insulin Degludec [Tresiba 80 unit SQ 12/31/17 Flextouch U-100] Lovastatin 20 mg PO DAILY 12/31/17 Ramipril 10 mg PO DAILY 12/31/17 Dulaglutide [Trulicity] 1.5 mg WEEKLY 01/03/18 Active Medications Aspirin (Ecotrin -) 81 mg PO DAILY [facility] Last Admin: 01/04/18 09:40 Dose: 81 mg Atorvastatin Calcium (Lipitor -) 80 mg PO [facility] Last Admin: 01/03/18 21:20 Dose: 80 mg Enoxaparin Sodium (Lovenox -) 80 mg SQ BID [facility] Last Admin: 01/04/18 09:41 Dose: 80 mg Insulin Aspart (Novolog Vial Sliding Scale -) 1 vial SQ [facility]; Protocol Last Admin: 01/04/18 12:23 Dose: Not Given Metoprolol Tartrate (Lopressor -) 25 mg PO BID [facility] Last Admin: 01/04/18 09:42 Dose: 25 mg Ramipril (Altace -) 10 mg PO DAILY [facility] Last Admin: 01/04/18 09:41 Dose: 10 mg Ticagrelor (Brilinta) 60 mg PO BID [facility] Last Admin: 01/04/18 09:41 Dose: 60 mg Laboratory Results - last 24 hr 01/03/18 01/03/18 01/04/18 17:20 21:22 05:50 Sodium 143 Potassium 4.4 Chloride 107 Carbon Dioxide 26 Anion Gap 10 BUN 23 H Creatinine 0.7 Creat Clearance w eGFR > 60 POC Glucometer 148 170 Random Glucose 131 H Calcium 9.4 Phosphorus 4.2 Magnesium 2.3 01/04/18 01/04/18 06:40 12:18 Sodium Potassium Chloride Carbon Dioxide Anion Gap BUN Creatinine Creat Clearance w eGFR POC Glucometer 132 134 Random Glucose Calcium Phosphorus Magnesium EKGs from admission reviewed ASSESSMENT AND PLAN: 72yo F with PMH DM, HTN, dyslipidemia and CAD s/p 3 stents presented to the [place] with leg swelling and chest pain, found with Troponin elevation and EKG changes. -NSTEMI -Pedal edema, improved without treatment per patient, doppler neg for DVT -IDDM -Dyspnea, resolved, ?From NSTEMI, clinically not in overload -HTN Plan: Troponin peaked. EKG reviewed. LVH with ST-T changes in anterolateral leads. Cardiology input noted. Medical management with ASA, brillinta, metoprolol, ramipril, statin. Lovenox per cardiology. Follow up 2D echo. ISS, resume home diabetic regimen on d.c dispo pending echo, cardiology input and clinical improvement. Plan discussed with patient in detail, all questions answered.
--- NOTE | 2018-01-04 15:09 | ECHO ---
Name: SOWKA, JOY Exam:Adult Echocardiogram Study Date: 01/04/2018 10:31 AM Reason For Study: WALL MOTION MMode/2D Measurements & Calculations IVSd: 1.1 cm Ao root diam: 2.1 cm LVIDd: 3.8 cm LA dimension: 2.7 cm LVIDs: 2.7 cm LVPWd: 0.81 cm EDV(Teich): 62.6 ml ESV(Teich): 27.3 ml Doppler Measurements & Calculations MV E max wenceslao: 53.5 cm/sec Ao V2 max: 172.7 cm/sec MV A max wenceslao: 81.6 cm/sec Ao max P.9 mmHg MV E/A: 0.66 Ao V2 mean: 119.0 cm/sec Ao mean P.9 mmHg Ao V2 VTI: 29.3 cm LV V1 max P.9 mmHg Med Peak E' Wenceslao: 4.6 cm/sec LV V1 mean P.6 mmHg Med E/e': 11.6 LV V1 max: 110.2 cm/sec Lat Peak E' Wenceslao: 8.3 cm/sec LV V1 mean: 73.3 cm/sec Lat E/e': 6.4 LV V1 VTI: 15.7 cm Left Ventricle The left ventricle is normal in size. The left ventricle is hyperdynamic. The transmitral spectral Do ppler flow pattern is suggestive of impaired LV relaxation. No regional wall motion abnormalities noted. LV EF = 75%. Right Ventricle The right ventricle is normal in size and function. Atria Normal left and right atrial size and function. Mitral Valve There is mild to moderate mitral annular calcification. Tricuspid Valve The tricuspid valve is not well visualized, but is grossly normal. Aortic Valve There is mild to moderate aortic sclerosis.;. No hemodynamically significant valvular aortic stenosis . Pulmonic Valve The pulmonic valve is not well seen, but is grossly normal. Great Vessels The aortic root is normal size. Pericardium/Pleura There is no pericardial effusion. Interpretation Summary The left ventricle is normal in size. The left ventricle is hyperdynamic. No regional wall motion abnormalities noted. LVEF = 75%. The right ventricle is normal in size and function. Normal left and right atrial size and function. There is mild to moderate mitral annular calcification. There is mild to moderate aortic sclerosis.; No hemodynamically significant valvular aortic stenosis. MD Missy Rubio 01/04/2018 03:08 PM
--- NOTE | 2018-01-04 15:24 | PN ---
Progress Note, Physician Chief Complaint: Pt A&Ox3;asymptomatic History of Present Illness: The patient is a 72 year old white woman with a significant past medical history of diabetes, asthma, CAD--> 3 stents (pt says they were done at the same time; included RCA DE stent 2006 at [facility]), obesity, HTN, hyperlipidemia, who presents to the ED for evaluation of lower extremity edema. The patient reports a 2 day history of bilateral calf and feet edema. She denies any previous history of lower extremity edema. She denies any trauma or injuries. Reports swelling is worse after standing for a while, and improves with elevation. Pt also reports pain to left great toe and second toe secondary to her toenails being cut too close. The patient states her concern for her lower extremity swelling prompted her to visit the ED for further evaluation. Pt denies any other complaints of cp, sob, headache, dizziness, F/C, N/V, and any bowel/urinary symptoms. Denies recent travel or immobilization. Denies calf pain. Pt is presently living out of her car. Allergies: Penicillins Social History: No reported alcohol, cigarette, or drug use. Surgical History: ?3 coronary stents. PCP: None. - Current Medication List Current Medications: Active Medications Aspirin (Ecotrin -) 81 mg PO DAILY [facility] Last Admin: 01/04/18 09:40 Dose: 81 mg Atorvastatin Calcium (Lipitor -) 80 mg PO HS [facility] Last Admin: 01/03/18 21:20 Dose: 80 mg Enoxaparin Sodium (Lovenox -) 80 mg SQ BID [facility] Last Admin: 01/04/18 09:41 Dose: 80 mg Insulin Aspart (Novolog Vial Sliding Scale -) 1 vial SQ [facility]; Protocol Last Admin: 01/04/18 12:23 Dose: Not Given Metoprolol Tartrate (Lopressor -) 25 mg PO BID [facility] Last Admin: 01/04/18 09:42 Dose: 25 mg Ramipril (Altace -) 10 mg PO DAILY [facility] Last Admin: 01/04/18 09:41 Dose: 10 mg Ticagrelor (Brilinta) 60 mg PO BID [facility] Last Admin: 01/04/18 09:41 Dose: 60 mg - Objective Vital Signs: Vital Signs Temperature 97.7 F 01/04/18 10:00 Pulse Rate 84 01/04/18 10:00 Respiratory Rate 18 01/04/18 10:00 Blood Pressure 107/57 01/04/18 10:00 O2 Sat by Pulse Oximetry (%) 97 01/04/18 09:00 Labs: CBC, BMP 01/02/18 05:30 01/04/18 05:50 Problem List - Problems (1) Elevated troponin Assessment/Plan: TNI 0.09 maximum; CK MB rel index low. EKG: NSR, 1st degree AVB; ST depression V3-V6 (r/o anterior and ateral wall ischemia). Hx CAD, with "3 stents". R/O ACS with unstable angina; acute CHF may also contribute to mild rise in TNI. Plan: Stress MIBI in am. Code(s): R74.8 - ABNORMAL LEVELS OF OTHER SERUM ENZYMES (2) Diabetes Assessment/Plan: continue ACEI (pt reportedly on ramipril) for HTN, CAD, and DM (renal protection ). Glucose 134; HGBA1c pending. Code(s): E11.9 - TYPE 2 DIABETES MELLITUS WITHOUT COMPLICATIONS (3) Obesity Code(s): E66.9 - OBESITY, UNSPECIFIED (4) Hyperlipidemia Assessment/Plan: Start high-dose atorvastatin (elevated triglycerides and LDL; + TNI; EKG changes ). Code(s): E78.5 - HYPERLIPIDEMIA, UNSPECIFIED (5) Leukocytosis Code(s): D72.829 - ELEVATED WHITE BLOOD CELL COUNT, UNSPECIFIED (6) Bilateral leg edema Code(s): R60.0 - LOCALIZED EDEMA (7) Asthma Code(s): J45.909 - UNSPECIFIED ASTHMA, UNCOMPLICATED (8) HTN (hypertension) Code(s): I10 - ESSENTIAL (PRIMARY) HYPERTENSION
--- NOTE | 2018-01-04 15:46 | PN ---
Physical Exam: SUBJECTIVE: Patient seen and examined. Pt. refused new saline lock insertion per nursing note. No acute events over night. Pt. endorses feeling much better than when she came in. OBJECTIVE: Vital Signs Period Temp Pulse Resp BP Sys/Wells Pulse Ox Last 24 Hr 97.7 F-98.9 F 84-95 18-20 107-145/51-71 97-98 GENERAL: The patient is awake, alert, and fully oriented, in no acute distress. Was sleeping with the bed flat when I walked in. LUNGS: Breath sounds equal, clear to auscultation bilaterally, no wheezes, no crackles, no accessory muscle use. HEART: Regular rate and rhythm, S1, S2 without murmur EXTREMITIES: warm, well-perfused, no edema, no calf pain. PSYCH: Normal mood, normal affect. SKIN: Warm, dry, normal turgor Laboratory Results - last 24 hr 01/03/18 01/03/18 01/04/18 17:20 21:22 05:50 Sodium 143 Potassium 4.4 Chloride 107 Carbon Dioxide 26 Anion Gap 10 BUN 23 H Creatinine 0.7 Creat Clearance w eGFR > 60 POC Glucometer 148 170 Random Glucose 131 H Calcium 9.4 Phosphorus 4.2 Magnesium 2.3 01/04/18 01/04/18 06:40 12:18 Sodium Potassium Chloride Carbon Dioxide Anion Gap BUN Creatinine Creat Clearance w eGFR POC Glucometer 132 134 Random Glucose Calcium Phosphorus Magnesium Active Medications Current Medications Aspirin (Ecotrin -) 81 mg PO DAILY [facility] Last Admin: 01/04/18 09:40 Dose: 81 mg Atorvastatin Calcium (Lipitor -) 80 mg PO HS [facility] Last Admin: 01/03/18 21:20 Dose: 80 mg Enoxaparin Sodium (Lovenox -) 80 mg SQ BID [facility] Last Admin: 01/04/18 09:41 Dose: 80 mg Insulin Aspart (Novolog Vial Sliding Scale -) 1 vial SQ ACHS [facility]; Protocol Last Admin: 01/04/18 12:23 Dose: Not Given Metoprolol Tartrate (Lopressor -) 25 mg PO BID [facility] Last Admin: 01/04/18 09:42 Dose: 25 mg Ramipril (Altace -) 10 mg PO DAILY [facility] Last Admin: 01/04/18 09:41 Dose: 10 mg Ticagrelor (Brilinta) 60 mg PO BID [facility] Last Admin: 01/04/18 09:41 Dose: 60 mg ECHO(01/04/18): LVEF 75%, No WMA, LV is hyperdynamic, RV is normal. Both atria are normal. mild mitral annular calcification, mild to moderate aortic sclerosis. ASSESSMENT/PLAN: 72 y.o. F w/ PMHx. of CAD s/p 3 stents (done at the same time), DM, Asthma, HTN , HLD and obesity presented at [facility] ED for LE edema and pain found to have dynamic EKG changes and elevated troponins. #NSTEMI -Appreciated Dr. Vivar's consult: Pt. is not a good candidate for cardiac catherization b/c of Pt.'s social situation and concern over compliance and safety after the procedure. Pt. to have Sestimibi scan Stress test on 01/05/18 -ECHO results appreciated -C/w NSTEMI drug regimen: ASA 81mg, Metoprolol 25 mg, Ramipril 10 mg, Atorvastatin 80mg -c/w Brilinta as Pt. refuses to take Plavix d/t nosebleeds. -complete Lovenox 80mg for Tx. Day 3 (01/04/18) -c/w cardiac monitoring -start Lovenox 40mg SQ as DVT PPx. #CAD s/p 3 stents -c/w NSTEMI drug regimen: ASA 81mg, Metoprolol 25 mg, Ramipril 10 mg, Atorvastatin 80mg -c/w Brilinta as Pt. refuses to take Plavix d/t nosebleeds. -c/w Lovenox 80mg for Tx. #Leg Edema -resolved - Doppler negative for DVT #DM -has needed 2 units only once during hospital stay. -BGM ACHS -ISS ACHS -diabetic diet -hold tresiba and Trulicity #Dispo -Tele--->Home pending results of Stress test. Visit type - Emergency Visit Emergency Visit: Yes ED Registration Date: 01/01/18 Care time: The patient presented to the Emergency Department on the above date and was hospitalized for further evaluation of their emergent condition. - New Patient This patient is new to me today: No - Critical Care Critical Care patient: No - Discharge Referral Referred to [facility] Med P.C.: No
--- NOTE | 2018-01-04 21:45 | EKG ---
Test Reason : Blood Pressure : / mmHG Vent. Rate : 088 BPM Atrial Rate : 088 BPM P-R Int : 208 ms QRS Dur : 108 ms QT Int : 364 ms P-R-T Axes : 073 066 116 degrees QTc Int : 440 ms SINUS RHYTHM WITH FREQUENT PREMATURE VENTRICULAR COMPLEXES ABNORMAL ECG WHEN COMPARED WITH ECG OF 01-JAN-2018 11:05, PREMATURE VENTRICULAR COMPLEXES ARE NOW PRESENT QT HAS SHORTENED Confirmed by MD LINDA, FELISA ([id number]) on 01/04/2018 9:45:27 PM Referred By: Samanta CANDELARIA Confirmed By:FELISA MCKEON MD
[2018-01-04] MEDS: ATORVASTATIN CA 80 MG TABLET (FP) PO SCH (21:50)
[2018-01-05] MEDS: INSULIN SLIDING SCALE (NOVOLOG) 1 VIAL SQ SCH ×4 (07:45→21:42)
--- NOTE | 2018-01-05 11:13 | PN ---
Progress Note, Physician History of Present Illness: The patient is a 72 year old white woman with a significant past medical history of diabetes, asthma, CAD--> 3 stents (pt says they were done at the same time; included RCA DE stent 2006 at [facility]), obesity, HTN, hyperlipidemia, who presents to the ED for evaluation of lower extremity edema. The patient reports a 2 day history of bilateral calf and feet edema. She denies any previous history of lower extremity edema. She denies any trauma or injuries. Reports swelling is worse after standing for a while, and improves with elevation. Pt also reports pain to left great toe and second toe secondary to her toenails being cut too close. The patient states her concern for her lower extremity swelling prompted her to visit the ED for further evaluation. Pt denies any other complaints of cp, sob, headache, dizziness, F/C, N/V, and any bowel/urinary symptoms. Denies recent travel or immobilization. Denies calf pain. Pt is presently living out of her car. - Current Medication List Current Medications: Active Medications Aspirin (Ecotrin -) 81 mg PO DAILY [facility] Last Admin: 01/04/18 09:40 Dose: 81 mg Atorvastatin Calcium (Lipitor -) 80 mg PO HS [facility] Last Admin: 01/04/18 21:50 Dose: 80 mg Enoxaparin Sodium (Lovenox -) 40 mg SQ DAILY [facility] Insulin Aspart (Novolog Vial Sliding Scale -) 1 vial SQ ACHS [facility]; Protocol Last Admin: 01/05/18 07:45 Dose: Not Given Metoprolol Tartrate (Lopressor -) 25 mg PO BID [facility] Last Admin: 01/04/18 21:50 Dose: 25 mg Ramipril (Altace -) 10 mg PO DAILY [facility] Last Admin: 01/04/18 09:41 Dose: 10 mg Ticagrelor (Brilinta) 60 mg PO BID [facility] Last Admin: 01/04/18 21:50 Dose: 60 mg - Objective Vital Signs: Vital Signs Temperature 98.2 F 01/05/18 06:00 Pulse Rate 92 H 01/05/18 06:00 Respiratory Rate 18 01/05/18 06:00 Blood Pressure 131/61 01/05/18 06:00 O2 Sat by Pulse Oximetry (%) 98 01/04/18 21:00 Labs: CBC, BMP 01/02/18 05:30 01/04/18 05:50 Assessment/Plan - Problems (1) Elevated troponin Assessment/Plan: TNI 0.09 maximum; CK MB rel index low. EKG: NSR, 1st degree AVB; ST depression V3-V6 (r/o anterior and ateral wall ischemia). Hx CAD, with "3 stents". R/O ACS with unstable angina; acute CHF may also contribute to mild rise in TNI. Plan: Stress MIBI today Code(s): R74.8 - ABNORMAL LEVELS OF OTHER SERUM ENZYMES (2) Diabetes Assessment/Plan: continue ACEI (pt reportedly on ramipril) for HTN, CAD, and DM (renal protection ). Glucose 134; HGBA1c pending. Code(s): E11.9 - TYPE 2 DIABETES MELLITUS WITHOUT COMPLICATIONS (3) Obesity Code(s): E66.9 - OBESITY, UNSPECIFIED (4) Hyperlipidemia Assessment/Plan: Start high-dose atorvastatin (elevated triglycerides and LDL; + TNI; EKG changes ). Code(s): E78.5 - HYPERLIPIDEMIA, UNSPECIFIED (5) Leukocytosis Code(s): D72.829 - ELEVATED WHITE BLOOD CELL COUNT, UNSPECIFIED (6) Bilateral leg edema Code(s): R60.0 - LOCALIZED EDEMA (7) Asthma Code(s): J45.909 - UNSPECIFIED ASTHMA, UNCOMPLICATED (8) HTN (hypertension) Code(s): I10 - ESSENTIAL (PRIMARY) HYPERTENSION
[2018-01-05] MEDS ORDERED: PT OWN MED DRAWER 7, Y5N ONE ×2 (12:23→21:37)
[2018-01-05] MEDS: ASPIRIN COATED 81 MG TABLET.EC PO SCH (12:32)
[2018-01-05] MEDS: RAMIPRIL 5 MG CAPSULE (FP) PO SCH (12:33)
[2018-01-05] MEDS: TICAGRELOR 60 MG TABLET PO SCH ×2 (12:33→23:02)
[2018-01-05] MEDS: METOPROLOL TARTRATE 25 MG TABLET (FP) PO SCH ×2 (12:34→21:38)
[2018-01-05] MEDS: ENOXAPARIN NA (PORCINE) 40 MG/0.4 ML DISP.SYRIN SQ SCH (12:34)
--- NOTE | 2018-01-05 13:15 | PN ---
Teaching Attending Note Name of Resident: Shaggy Caicedo ATTENDING PHYSICIAN STATEMENT I saw and evaluated the patient. I reviewed the resident's note and discussed the case with the resident. I agree with the resident's findings and plan as documented with exceptions below. SUBJECTIVE: Patient seen and examined. no chest pain or new concerns. OBJECTIVE: Vital Signs Period Temp Pulse Resp BP Sys/Wells Pulse Ox Last 24 Hr 97.9 F-98.5 F 86-101 18-18 114-146/51-70 98 Intake & Output 01/02/18 01/03/18 01/04/18 01/05/18 23:59 23:59 23:59 23:59 Intake Total 530 960 910 210 Balance 530 960 910 210 General: lying in bed in no acute distress Chest: No rales or wheezing, CTAB, Extremities:no edema Abdomen: soft, obese, NT Active Medications Aspirin (Ecotrin -) 81 mg PO DAILY [facility] Last Admin: 01/05/18 12:32 Dose: 81 mg Atorvastatin Calcium (Lipitor -) 80 mg PO HS [facility] Last Admin: 01/04/18 21:50 Dose: 80 mg Enoxaparin Sodium (Lovenox -) 40 mg SQ DAILY [facility] Last Admin: 01/05/18 12:34 Dose: Not Given Insulin Aspart (Novolog Vial Sliding Scale -) 1 vial SQ [facility]; Protocol Last Admin: 01/05/18 12:30 Dose: Not Given Metoprolol Tartrate (Lopressor -) 25 mg PO BID [facility] Last Admin: 01/05/18 12:34 Dose: 25 mg Ramipril (Altace -) 10 mg PO DAILY [facility] Last Admin: 01/05/18 12:33 Dose: 10 mg Ticagrelor (Brilinta) 60 mg PO BID [facility] Last Admin: 01/05/18 12:33 Dose: 60 mg Laboratory Results - last 24 hr 01/04/18 01/04/18 01/05/18 16:50 21:48 05:14 POC Glucometer 148 183 200 01/05/18 12:30 POC Glucometer 131 ASSESSMENT AND PLAN: 72yo F with PMH DM, HTN, dyslipidemia and CAD s/p 3 stents presented to the [place] with leg swelling and chest pain, found with Troponin elevation and EKG changes. -NSTEMI -Pedal edema, improved without treatment per patient, doppler neg for DVT -IDDM -Dyspnea, resolved, ?From NSTEMI, clinically not in overload -HTN Plan: Troponin peaked. EKG reviewed. LVH with ST-T changes in anterolateral leads. Cardiology input noted. Medical management with ASA, brillinta, metoprolol, ramipril, statin. Lovenox d/ ifrah as discussed with cardiology. 2D echo noted. Stress test abnormal. Follow up with cardiology for possible cath/intervention. ISS, diabetic diet Dispo pending cardiology input. Plan discussed with patient in detail, all questions answered.
--- NOTE | 2018-01-05 20:26 | PN ---
Physical Exam: SUBJECTIVE: Patient seen and examined. Pt. endorses feeling on-and off again nausea. Pt. has not mentioned it before, had non-bloody, non-bilious vomit x1. Passing urine, Had BM. C/o lovenox injections and bruising. OBJECTIVE: Vital Signs Period Temp Pulse Resp BP Sys/Wells Pulse Ox Last 24 Hr 97.9 F-98.4 F 85-101 18-18 114-138/51-67 97-98 GENERAL: The patient is awake, alert, and fully oriented, in no acute distress. LUNGS: Breath sounds equal, clear to auscultation bilaterally, no wheezes, no crackles, no accessory muscle use. HEART: Regular rate and rhythm, S1, S2 without murmur ABDOMEN: Soft,3x5 in. ecchymosis in LLQ, TTP @ LLQ @ the lovenox injection site , nondistended, normoactive bowel sounds EXTREMITIES: warm, well-perfused, no edema, no calf pain. PSYCH: Normal mood, normal affect. SKIN: Warm, dry, normal turgor Laboratory Results - last 24 hr 01/04/18 01/05/18 01/05/18 21:48 05:14 12:30 POC Glucometer 183 200 131 01/05/18 16:26 POC Glucometer 182 Active Medications Current Medications Aspirin (Ecotrin -) 81 mg PO DAILY [facility] Last Admin: 01/05/18 12:32 Dose: 81 mg Atorvastatin Calcium (Lipitor -) 80 mg PO HS [facility] Last Admin: 01/04/18 21:50 Dose: 80 mg Enoxaparin Sodium (Lovenox -) 40 mg SQ DAILY [facility] Last Admin: 01/05/18 12:34 Dose: Not Given Insulin Aspart (Novolog Vial Sliding Scale -) 1 vial SQ ACHS [facility]; Protocol Last Admin: 01/05/18 17:45 Dose: 2 units Metoprolol Tartrate (Lopressor -) 25 mg PO BID [facility] Last Admin: 01/05/18 12:34 Dose: 25 mg Ramipril (Altace -) 10 mg PO DAILY [facility] Last Admin: 01/05/18 12:33 Dose: 10 mg Ticagrelor (Brilinta) 60 mg PO BID [facility] Last Admin: 01/05/18 12:33 Dose: 60 mg ASSESSMENT/PLAN: 72 y.o. F w/ PMHx. of CAD s/p 3 stents (done at the same time), DM, Asthma, HTN , HLD and obesity presented at [facility] ED for LE edema and pain found to have dynamic EKG changes and elevated troponins. #NSTEMI -Appreciated Dr. Vivar's consult: Pt. is not a good candidate for cardiac catherization b/c of Pt.'s social situation and concern over compliance and safety after the procedure. Pt. to have Sestimibi scan Stress test on 01/05/18 -ECHO results appreciated -C/w NSTEMI drug regimen: ASA 81mg, Metoprolol 25 mg, Ramipril 10 mg, Atorvastatin 80mg -c/w Brilinta as Pt. refuses to take Plavix d/t nosebleeds. -complete Lovenox 80mg for Tx. Day 3 (01/04/18) -c/w cardiac monitoring -start Lovenox 40mg SQ as DVT PPx. -Stress Test(01/05/18): Mod. size, Mod. intensity post. and lat. wall reversible perfusion defect consistent w/ ischemia. EF:49% Normal LV size, mild global hypokinesis -F/U for outpatient cardiac cath for PCI? #CAD s/p 3 stents -c/w NSTEMI drug regimen: ASA 81mg, Metoprolol 25 mg, Ramipril 10 mg, Atorvastatin 80mg -c/w Brilinta as Pt. refuses to take Plavix d/t nosebleeds. -c/w Lovenox 80mg for Tx. #Leg Edema -resolved - Doppler negative for DVT #DM -has needed 2 units only once during hospital stay. -BGM ACHS -ISS ACHS -diabetic diet -hold tresiba and Trulicity #Dispo -Tele--->Home pending results of Stress test. Visit type - Emergency Visit Emergency Visit: Yes ED Registration Date: 01/01/18 Care time: The patient presented to the Emergency Department on the above date and was hospitalized for further evaluation of their emergent condition. - New Patient This patient is new to me today: No - Critical Care Critical Care patient: No - Discharge Referral Referred to [facility] Med P.C.: No
[2018-01-05] MEDS: ATORVASTATIN CA 80 MG TABLET (FP) PO SCH (21:38)
--- NOTE | 2018-01-06 05:17 | DS ---
Physical Exam: SUBJECTIVE: Patient seen and examined. No acute events overnight. No complaints. OBJECTIVE: Vital Signs Period Temp Pulse Resp BP Sys/Wells Pulse Ox Last 24 Hr 97.8 F-98.4 F 85-92 18-20 122-140/53-67 94-97 PHYSICAL EXAM GENERAL: The patient is awake, alert, and fully oriented, in no acute distress. LUNGS: Breath sounds equal, clear to auscultation bilaterally, no wheezes, no crackles, no accessory muscle use. HEART: Regular rate and rhythm, S1, S2 without murmur, rub or gallop. ABDOMEN: Soft, nontender, nondistended, normoactive bowel sounds, no guarding, no rebound, no hepatosplenomegaly, no masses. EXTREMITIES: 2+ pulses, warm, well-perfused, no edema. NEUROLOGICAL: Cranial nerves II through XII grossly intact. Normal speech, gait not observed. PSYCH: Normal mood, normal affect. SKIN: Warm, dry, normal turgor, no rashes or lesions noted. LABS Laboratory Results - last 24 hr 01/05/18 01/05/18 01/05/18 05:14 12:30 16:26 POC Glucometer 200 131 182 01/05/18 21:41 POC Glucometer 149 HOSPITAL COURSE: Date of Admission:01/01/18 Date of Discharge: 01/06/18 Pre-Hospital:Pt is a 72 yo F with a signif PMHx of DM, Asthma, HTN, HLD, CADx3 stents (done at the same time) obesity, who presented to [facility] ED for LE edema and pain. The pt describes a history of bilateral calf and feet swelling x2 days. Reports swelling is worse after standing for a while, and improves with elevation. Pt reports left first and second toe pain and swelling after her toenails were cut too low. She reports having severe pressure -like chest pain about 2 days prior that self resolved. In the ED she was noted to have EKG changes and elevated trops, was started on lovenox and and transferred to [facility]. She denies current chest pain, SOB, diaphoresis, n/v or syncope or cough, but acknowledges L arm pain. Hospital: Pt. was admitted for suspected NSTEMI. Pt. had Troponins peak at 0.09. Pt. was started on ASA 81mg, Metoprolol 25 mg, Ramipril 10 mg, Atorvastatin 80mg and Brilinta. Pt. underwent Echo which did not show any significant structural abnormalities. Pt. underwent MIBI stress test and was found to have Mod. size, Mod. intensity post. and lat. wall reversible perfusion defect consistent w/ ischemia. EF:49% Normal LV size, mild global hypokinesis. Per cardiology consult and discussion with Pt. it was agreed upon that the best course of action would be to transfer the patient to [facility] for PCI. Hospital course, risks and benefits were discussed and agreed upon with patient, medical team and consults. Minutes to complete discharge: 38 Discharge Summary Reason For Visit: BILATERAL LOWER EXTREMITY EDEMA Current Active Problems Bilateral leg edema (Acute) Diabetes (Acute) Elevated troponin (Acute) HTN (hypertension) (Acute) Hyperlipidemia (Acute) Leukocytosis (Acute) Myocardial infarction acute (Acute) Obesity (Acute) Condition: Improved - Instructions Diet, Activity, Other Instructions: You are being transferred for cardiac catheterization and further management for your heart. Your home medications prior to admission were: Home Medications Medication Instructions Recorded Insulin Degludec [Tresiba 80 unit SQ HS 12/31/17 Flextouch U-100] Lovastatin 20 mg PO DAILY 12/31/17 Ramipril 10 mg PO DAILY 12/31/17 Dulaglutide [Trulicity] 1.5 mg WEEKLY 01/03/18 Your current active medications are as follows: Aspirin (Ecotrin -) 81 mg PO DAILY [facility] Atorvastatin Calcium (Lipitor -) 80 mg PO HS [facility] Insulin Aspart (Novolog Vial Sliding Scale -) 1 vial SQ ACHS [facility]; Protocol Metoprolol Tartrate (Lopressor -) 25 mg PO BID [facility] Ramipril (Altace -) 10 mg PO DAILY [facility] Ticagrelor (Brilinta) 60 mg PO BID [facility] Further medication adjustments and recommendations will be provided based on your cardiac catheterization. Resume your diabetes medications per your blood sugars at the facility Disposition: TRANSFER ACUTE CARE/OTHER HOSP - Home Medications Comprehensive Discharge Medication List: Ambulatory Orders Insulin Degludec [Tresiba Flextouch U-100] 80 unit SQ HS 12/31/17 Lovastatin 20 mg PO DAILY 12/31/17 Ramipril 10 mg PO DAILY 12/31/17 Dulaglutide [Trulicity] 1.5 mg WEEKLY 01/03/18 Aspirin Coated [Ecotrin -] 81 mg PO DAILY #30 tablet.ec 01/04/18 Metoprolol Tartrate [Lopressor -] 25 mg PO BID #30 tablet 01/04/18 Ticagrelor [Brilinta] 60 mg PO BID #30 tablet 01/04/18 This patient is new to me today: No Emergency Visit: Yes ED Registration Date: 01/01/18 Care time: The patient presented to the Emergency Department on the above date and was hospitalized for further evaluation of their emergent condition. Critical Care patient: No - Discharge Referral Referred to [facility] Med P.C.: No
[2018-01-06] MEDS: INSULIN SLIDING SCALE (NOVOLOG) 1 VIAL SQ SCH ×3 (06:18→11:49)
--- NOTE | 2018-01-06 08:23 | PN ---
Teaching Attending Note Name of Resident: Shaggy Caicedo ATTENDING PHYSICIAN STATEMENT I saw and evaluated the patient. I reviewed the resident's note and discussed the case with the resident. I agree with the resident's findings and plan as documented with exceptions below. SUBJECTIVE: Patient seen and examined. no complaints, doing well. OBJECTIVE: Vital Signs Period Temp Pulse Resp BP Sys/Wells Pulse Ox Last 24 Hr 97.8 F-98.4 F 85-97 18-20 119-140/53-75 94-97 Intake & Output 01/03/18 01/04/18 01/05/18 01/06/18 23:59 23:59 23:59 23:59 Intake Total 960 910 210 Balance 960 910 210 General: sitting in bed in no acute distress Chest: CTAB, no rales or wheezing Abdomen: soft, NT Extremities: no edema Home Medications Medication Instructions Recorded Insulin Degludec [Tresiba 80 unit SQ 12/31/17 Flextouch U-100] Lovastatin 20 mg PO DAILY 12/31/17 Ramipril 10 mg PO DAILY 12/31/17 Dulaglutide [Trulicity] 1.5 mg WEEKLY 01/03/18 Aspirin Coated [Ecotrin -] 81 mg PO DAILY #30 tablet.ec 01/04/18 Metoprolol Tartrate [Lopressor -] 25 mg PO BID #30 tablet 01/04/18 Ticagrelor [Brilinta] 60 mg PO BID #30 tablet 01/04/18 Active Medications Aspirin (Ecotrin -) 81 mg PO DAILY [facility] Last Admin: 01/05/18 12:32 Dose: 81 mg Atorvastatin Calcium (Lipitor -) 80 mg PO [facility] Last Admin: 01/05/18 21:38 Dose: 80 mg Enoxaparin Sodium (Lovenox -) 40 mg SQ DAILY [facility] Last Admin: 01/05/18 12:34 Dose: Not Given Insulin Aspart (Novolog Vial Sliding Scale -) 1 vial SQ [facility]; Protocol Last Admin: 01/06/18 06:18 Dose: Not Given Metoprolol Tartrate (Lopressor -) 25 mg PO BID [facility] Last Admin: 01/05/18 21:38 Dose: 25 mg Ramipril (Altace -) 10 mg PO DAILY [facility] Last Admin: 01/05/18 12:33 Dose: 10 mg Ticagrelor (Brilinta) 60 mg PO BID [facility] Last Admin: 01/05/18 23:02 Dose: 60 mg Laboratory Results - last 24 hr 01/05/18 01/05/18 01/05/18 12:30 16:26 21:41 POC Glucometer 131 182 149 01/06/18 06:17 POC Glucometer 139 ASSESSMENT AND PLAN: 72yo F with PMH DM, HTN, dyslipidemia and CAD s/p 3 stents presented to the [facility] with leg swelling and chest pain, found with Troponin elevation and EKG changes. -NSTEMI -Pedal edema, improved without treatment per patient, doppler neg for DVT -IDDM -Dyspnea, resolved, ?From NSTEMI, clinically not in overload -HTN Plan: Discussed with Dr. Vivar, plan for transfer for cardiac cath. Discussed with patient, in agreement with plan. Continue medical management with ASA/Brilinta/metoprolol/statin/ramipril. D/c to [facility] Plan discussed with patient in detail, all questions answered.
--- NOTE | 2018-01-06 09:54 | PN ---
Progress Note, Physician Chief Complaint: Pt A&Ox3;asymptomatic. Sitting OOB n chair. Anxious about where she will live afterwards. History of Present Illness: The patient is a 72 year old white woman with a significant past medical history of diabetes, asthma, CAD--> 3 stents (pt says they were done at the same time; included RCA DE stent 2006 at [facility]), obesity, HTN, hyperlipidemia, who presents to the ED for evaluation of lower extremity edema. The patient reports a 2 day history of bilateral calf and feet edema. She denies any previous history of lower extremity edema. She denies any trauma or injuries. Reports swelling is worse after standing for a while, and improves with elevation. Pt also reports pain to left great toe and second toe secondary to her toenails being cut too close. The patient states her concern for her lower extremity swelling prompted her to visit the ED for further evaluation. Pt denies any other complaints of cp, sob, headache, dizziness, F/C, N/V, and any bowel/urinary symptoms. Denies recent travel or immobilization. Denies calf pain. Pt is presently living out of her car. Allergies: Penicillins Social History: No reported alcohol, cigarette, or drug use. Surgical History: ?3 coronary stents. PCP: None. - Current Medication List Current Medications: Active Medications Aspirin (Ecotrin -) 81 mg PO DAILY [facility] Last Admin: 01/05/18 12:32 Dose: 81 mg Atorvastatin Calcium (Lipitor -) 80 mg PO HS [facility] Last Admin: 01/05/18 21:38 Dose: 80 mg Enoxaparin Sodium (Lovenox -) 40 mg SQ DAILY [facility] Last Admin: 01/05/18 12:34 Dose: Not Given Insulin Aspart (Novolog Vial Sliding Scale -) 1 vial SQ [facility]; Protocol Last Admin: 01/06/18 08:22 Dose: Not Given Metoprolol Tartrate (Lopressor -) 25 mg PO BID [facility] Last Admin: 01/05/18 21:38 Dose: 25 mg Ramipril (Altace -) 10 mg PO DAILY [facility] Last Admin: 01/05/18 12:33 Dose: 10 mg Ticagrelor (Brilinta) 60 mg PO BID [facility] Last Admin: 01/05/18 23:02 Dose: 60 mg - Objective Vital Signs: Vital Signs Temperature 97.9 F 01/06/18 06:00 Pulse Rate 94 H 01/06/18 06:00 Respiratory Rate 20 01/06/18 06:00 Blood Pressure 119/75 01/06/18 06:00 O2 Sat by Pulse Oximetry (%) 94 L 01/05/18 21:00 Labs: CBC, BMP 01/02/18 05:30 01/04/18 05:50 Problem List - Problems (1) Elevated troponin Assessment/Plan: TNI 0.09 maximum; CK MB rel index low. EKG: NSR, 1st degree AVB; ST depression V3-V6 (r/o anterior and ateral wall ischemia). Hx CAD, with "3 stents". R/O ACS with unstable angina; acute CHF may also contribute to mild rise in TNI. Plan: Stress MIBI yesterday showed moderate size and intensity posterior and lateral wall ischemia; mildely reduced LVEF (49%). [facility]. Code(s): R74.8 - ABNORMAL LEVELS OF OTHER SERUM ENZYMES (2) Diabetes Code(s): E11.9 - TYPE 2 DIABETES MELLITUS WITHOUT COMPLICATIONS (3) Obesity Code(s): E66.9 - OBESITY, UNSPECIFIED (4) Hyperlipidemia Code(s): E78.5 - HYPERLIPIDEMIA, UNSPECIFIED (5) Leukocytosis Code(s): D72.829 - ELEVATED WHITE BLOOD CELL COUNT, UNSPECIFIED (6) Bilateral leg edema Code(s): R60.0 - LOCALIZED EDEMA (7) Asthma Code(s): J45.909 - UNSPECIFIED ASTHMA, UNCOMPLICATED (8) HTN (hypertension) Code(s): I10 - ESSENTIAL (PRIMARY) HYPERTENSION
[2018-01-06] MEDS ORDERED: PT OWN MED DRAWER 7, Y5N ONE (09:58)
[2018-01-06] MEDS: METOPROLOL TARTRATE 25 MG TABLET (FP) PO SCH (10:02)
[2018-01-06] MEDS: RAMIPRIL 5 MG CAPSULE (FP) PO SCH (10:02)
[2018-01-06] MEDS: ASPIRIN COATED 81 MG TABLET.EC PO SCH (10:02)
[2018-01-06] MEDS: ENOXAPARIN NA (PORCINE) 40 MG/0.4 ML DISP.SYRIN SQ SCH (10:02)
[2018-01-06] MEDS: TICAGRELOR 60 MG TABLET PO SCH (10:03)
[2018-01-06 10:39] VITALS: BP 120/58; PULSE 100; TEMP 98.8
== END 2018-01-06 13:36 | disposition short-term general hospital (02) | DRG 282 ==
LOC: FER 17:06 → J4W 01-01 02:00
PROVIDERS: ADMIT Internal Medicine; ATTEND Hospitalist
DX: I21.4 Non-ST elevation (NSTEMI) myocardial infarction (principal); I25.10 Atherosclerotic heart disease of native coronary artery without angina pectoris; J45.909 Unspecified asthma, uncomplicated; E11.9 Type 2 diabetes mellitus without complications; I10 Essential (primary) hypertension; I44.0 Atrioventricular block, first degree; E78.00 Pure hypercholesterolemia, unspecified; E66.9 Obesity, unspecified; Z68.31 Body mass index [BMI] 31.0-31.9, adult; D72.829 Elevated white blood cell count, unspecified; R60.0 Localized edema; Z87.891 Personal history of nicotine dependence; Z79.4 Long term (current) use of insulin; Z78.0 Asymptomatic menopausal state; Z95.5 Presence of coronary angioplasty implant and graft
CPT/HCPCS: 36415; 71046-TC-FY; 78452-TC; 80048; 80053; 80061; 81003; 82043; 82550; 82553; 82570; 82962; 83036; 83721; 83735; 83880; 84100; 84439; 84443; 84484; 84681; 85025; 85027; 85730; 90670; 93005; 93010; 93017; 93306-TC; 93970-TC; 99282-25; A9502

== ENCOUNTER 2018-04-16 00:41 | Emergency (ER) | payer OTHER ==
[2018-04-16 00:49] VITALS: BP 129/95; PULSE 102; TEMP 99.3; BMI 31.1
--- NOTE | 2018-04-16 01:15 | PDOC ---
History of Present Illness - General Chief Complaint: Respiratory Stated Complaint: RT POST RIB PAIN/COUGH - History of Present Illness Initial Comments: 04/16/18 03:33 1) back pain and 2) worsening asthma x 2 days Timing/Duration: other (2 days) Severity: moderate Modifying Factors: worse with: medication Associated Symptoms: reports: chest pain, fever/chills, rash Past History - Past Medical History Allergies/Adverse Reactions: Allergies Allergy/AdvReac Type Severity Reaction Status Date / Time shellfish derived Allergy Unknown Verified 02/24/18 19:20 Penicillins Allergy Hives Verified 12/31/17 17:09 Home Medications: Ambulatory Orders Insulin Degludec [Tresiba Flextouch U-100] 70 unit SQ DAILY 12/31/17 Dulaglutide [Trulicity] 1.5 mg SQ WEEKLY 01/03/18 Aspirin Coated [Ecotrin -] 81 mg PO DAILY #30 tablet.ec 01/04/18 Ticagrelor [Brilinta] 60 mg PO BID #30 tablet 01/04/18 Atorvastatin Ca [Lipitor] 20 mg PO DAILY 02/24/18 Metformin HCl [Glucophage] 500 mg PO BID 02/24/18 Atorvastatin Ca [Lipitor] 80 mg PO HS tablet 02/28/18 Meclizine HCl [Antivert -] 25 mg PO Q6H PRN #40 tablet 02/28/18 Asthma: Yes Cardiac Disorders: Yes (stents) COPD: No Diabetes: Yes GI Disorders: Yes (GERD) HTN: Yes Hypercholesterolemia: Yes - Surgical History Cardiac Surgery: Yes (stents) - Immunization History Immunization Up to Date: No - Suicide/Smoking/Psychosocial Hx Smoking History: Former smoker Have you smoked in the past 12 months: No If you are a former smoker, when did you quit?: 2002 Information on smoking cessation initiated: No Hx Alcohol Use: No Drug/Substance Use Hx: No Substance Use Type: None Hx Substance Use Treatment: No Review of Systems - Review of Systems All Other Systems: Reviewed and Negative *Physical Exam - Vital Signs Last Vital Signs Temp Pulse Resp BP Pulse Ox 99.3 F 102 H 20 129/95 100 04/16/18 00:44 04/16/18 00:44 04/16/18 00:44 04/16/18 00:44 04/16/18 00:44 - Physical Exam General Appearance: Yes: Nourished, Appropriately Dressed HEENT: positive: Normal Voice. negative: Scleral Icterus (R), Scleral Icterus ( L) Neck: negative: Lymphadenopathy (R), Lymphadenopathy (L) Respiratory/Chest: positive: Wheezing. negative: Accessory Muscle Use Gastrointestinal/Abdominal: negative: Tender, Distended Lymphatic: negative: Adenopathy Musculoskeletal: positive: Normal Inspection Extremity: positive: Normal Capillary Refill Integumentary: positive: Other (r mid thoracic dermatomal rash, erythematous, linear, blistering) Neurologic: positive: Fully Oriented Medical Decision Making - Medical Decision Making 04/16/18 03:35 Asthma --Steroids, bronchodilator ZOster --Steroids, valtrex CXR: -, as read by me, refered to radiology for definitive read *DC/Admit/Observation/Transfer Diagnosis at time of Disposition: Shingles Qualifiers: Herpes zoster complications: without complications Qualified Code(s): B02.9 - Zoster without complications Acute asthma exacerbation Qualifiers: Asthma severity: moderate Asthma persistence: unspecified Qualified Code(s): J45.901 - Unspecified asthma with (acute) exacerbation - Discharge Dispostion Condition at time of disposition: Stable - Referrals Referrals: Jessica Rooney MD [Primary Care Provider] - - Patient Instructions - Post Discharge Activity
[2018-04-16] MEDS ORDERED: predniSONE 20 MG TABLET (UD) PO ONE (01:33)
[2018-04-16] MEDS ORDERED: ALBUTEROL SO4 0.083% IH SOL 2.5 MG/3 ML VIAL.NEB. NEB ONE ×2 (01:33→01:38)
[2018-04-16] MEDS ORDERED: valACYclovir HCL 1000 MG TABLET PO ONE (01:34)
[2018-04-16] MEDS ORDERED: valACYclovir HCL 500 MG TABLET (FP) ONE (01:37)
[2018-04-16] MEDS ORDERED: predniSONE 20 MG TABLET (UD) ONE (01:38)
[2018-04-16] MEDS ORDERED: ACETAMINOPHEN 500 MG TABLET (FP) PO ONE (03:19)
[2018-04-16] MEDS ORDERED: IBUPROFEN 400 MG TABLET (FP) PO ONE ×2 (03:19→03:22)
[2018-04-16] MEDS ORDERED: ACETAMINOPHEN 500 MG TABLET (FP) ONE (03:25)
--- NOTE | 2018-04-16 06:12 | PDOC ---
History of Present Illness - General Chief Complaint: Respiratory Stated Complaint: RT POST RIB PAIN/COUGH Time Seen by Provider: 04/16/18 02:06 Past History - Past Medical History Allergies/Adverse Reactions: Allergies Allergy/AdvReac Type Severity Reaction Status Date / Time shellfish derived Allergy Unknown Verified 02/24/18 19:20 Penicillins Allergy Hives Verified 12/31/17 17:09 Home Medications: Ambulatory Orders Insulin Degludec [Tresiba Flextouch U-100] 70 unit SQ DAILY 12/31/17 Dulaglutide [Trulicity] 1.5 mg SQ WEEKLY 01/03/18 Aspirin Coated [Ecotrin -] 81 mg PO DAILY #30 tablet.ec 01/04/18 Ticagrelor [Brilinta] 60 mg PO BID #30 tablet 01/04/18 Atorvastatin Ca [Lipitor] 20 mg PO DAILY 02/24/18 Metformin HCl [Glucophage] 500 mg PO BID 02/24/18 Atorvastatin Ca [Lipitor] 80 mg PO HS tablet 02/28/18 Meclizine HCl [Antivert -] 25 mg PO Q6H PRN #40 tablet 02/28/18 Albuterol Sulfate Inhaler - [Ventolin HFA Inhaler -] 2 inh PO Q4H PRN #1 inhaler 04/16/18 Oxycodone HCl/Acetaminophen [Percocet 5-325 mg Tablet] 1 - 2 tab PO Q6H PRN #12 tab MDD 8 tabs 04/16/18 Valacyclovir HCl [Valtrex] 1,000 mg PO BID #14 tablet 04/16/18 predniSONE [Deltasone -] 40 mg PO DAILY 5 Days #10 tablet 04/16/18 Asthma: Yes Cardiac Disorders: Yes (stents) COPD: No Diabetes: Yes GI Disorders: Yes (GERD) HTN: Yes Hypercholesterolemia: Yes - Surgical History Cardiac Surgery: Yes (stents) - Immunization History Immunization Up to Date: No - Suicide/Smoking/Psychosocial Hx Smoking History: Former smoker Have you smoked in the past 12 months: No If you are a former smoker, when did you quit?: 2002 Information on smoking cessation initiated: No Hx Alcohol Use: No Drug/Substance Use Hx: No Substance Use Type: None Hx Substance Use Treatment: No *Physical Exam - Vital Signs Last Vital Signs Temp Pulse Resp BP Pulse Ox 99.3 F 102 H 20 129/95 100 04/16/18 00:44 04/16/18 00:44 04/16/18 00:44 04/16/18 00:44 04/16/18 00:44 ED Treatment Course - RADIOLOGY Radiology Studies Ordered: Category Date Time Status CHEST PA & LAT [RAD] Stat Radiology 04/16/18 01:04 Taken - Medications Given in the ED: ED Medications Discontinued Medications Generic Name Dose Route Start Last Admin Trade Name Freq PRN Reason Stop Dose Admin Acetaminophen 1,000 mg 04/16/18 03:19 04/16/18 03:25 Tylenol - PO 04/16/18 03:20 1,000 mg ONCE ONE Administration Albuterol Sulfate 1 amp 04/16/18 01:33 04/16/18 01:41 Ventolin 0.083% Nebulizer Soln - NEB 04/16/18 01:34 1 amp ONCE ONE Administration Ibuprofen 400 mg 04/16/18 03:19 04/16/18 03:25 Motrin - PO 04/16/18 03:20 400 mg ONCE ONE Administration Prednisone 40 mg 04/16/18 01:33 04/16/18 01:41 Deltasone - PO 04/16/18 01:34 40 mg ONCE ONE Administration Valacyclovir HCl 1,000 mg 04/16/18 01:34 04/16/18 01:41 Valtrex - PO 04/16/18 01:35 1,000 mg ONCE ONE Administration Medical Decision Making - Medical Decision Making 04/16/18 06:03 observed overnight in ED with improvement in symptomotology Has PCP fu in 1 week Cautioned re: diabetic control on steroids *DC/Admit/Observation/Transfer Diagnosis at time of Disposition: Shingles Qualifiers: Herpes zoster complications: without complications Qualified Code(s): B02.9 - Zoster without complications Acute asthma exacerbation Qualifiers: Asthma severity: moderate Asthma persistence: unspecified Qualified Code(s): J45.901 - Unspecified asthma with (acute) exacerbation - Discharge Dispostion Disposition: HOME Condition at time of disposition: Stable - Prescriptions Prescriptions: Albuterol Sulfate Inhaler - [Ventolin HFA Inhaler -] 2 inh PO Q4H PRN #1 inhaler PRN Reason: Dyspnea Oxycodone HCl/Acetaminophen [Percocet 5-325 mg Tablet] 1 - 2 tab PO Q6H PRN #12 tab MDD 8 tabs PRN Reason: Pain predniSONE [Deltasone -] 40 mg PO DAILY 5 Days #10 tablet Valacyclovir HCl [Valtrex] 1,000 mg PO BID #14 tablet - Referrals Referrals: Jessica Rooney MD [Primary Care Provider] - - Patient Instructions Printed Discharge Instructions: DI for Shingles - Post Discharge Activity
== END 2018-04-16 06:30 | disposition home or self-care (01) ==
LOC: FER 00:41
DX: B02.9 Zoster without complications (principal); J45.901 Unspecified asthma with (acute) exacerbation; Z87.891 Personal history of nicotine dependence; Z95.5 Presence of coronary angioplasty implant and graft; K21.9 Gastro-esophageal reflux disease without esophagitis; I10 Essential (primary) hypertension; E78.00 Pure hypercholesterolemia, unspecified; E11.9 Type 2 diabetes mellitus without complications; Z79.4 Long term (current) use of insulin
CPT/HCPCS: 71046-TC-FY; 99282-25

== ENCOUNTER → 2018-05-02 | Emergency (ER) | payer OTHER ==
[~2018-05-02] MED LIST: ASPIRIN 81 MG CHEWABLE TABLETS ONE; ASPIRIN 81 MG CHEWABLE TABLETS PO ONE; HEMOQUE TEST 1 EACH EACH ONE; INSULIN REGULAR HUMAN 100 UNITS/ML *VIAL IVPUSH ONE; INSULIN REGULAR HUMAN 100 UNITS/ML *VIAL ONE; SODIUM CHLORIDE 500 ML IV STA
[2018-05-02 19:10] VITALS: TEMP 97.8; BMI 31.1
--- NOTE | 2018-05-02 19:24 | PDOC ---
History of Present Illness <Stacia Muñiz - Last Filed: 05/02/18 19:16> <Susie Coto - Last Filed: 05/02/18 23:50> - General History Source: Patient Exam Limitations: No Limitations - History of Present Illness Initial Comments: 05/02/18 19:24 The patient is a 72 year old female, with a significant past medical history of diabetes, who presents to the emergency department with acute on chronic chest pain. 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 Vivar. The patient notes that when she took her nitroglycerin at work she syncopated. The patient was supposed to have a cardiac procedure done as per Dr. Vivar but could not due to low red blood cell count. She denies recent fevers, chills, headache or dizziness. She denies recent nausea, vomit, diarrhea or constipation. She denies recent dysuria, frequency, urgency or hematuria. She denies recent shortness of breath. Allergies: shellfish, Penicillins Social history: Nonsmoker. Denies EtOH use and recreational drug use. Remedy Developer: Dr. Vivar <Brooke Murray - Last Filed: 05/02/18 23:52> - General Chief Complaint: Chest Pain Stated Complaint: CHEST PAIN Time Seen by Provider: 05/02/18 19:12 Past History - Past Medical History Asthma: Yes Cardiac Disorders: Yes (stents) COPD: No Diabetes: Yes GI Disorders: Yes (GERD) HTN: Yes Hypercholesterolemia: Yes - Surgical History Cardiac Surgery: Yes (stents) - Immunization History Immunization Up to Date: No - Suicide/Smoking/Psychosocial Hx Smoking History: Never smoked Have you smoked in the past 12 months: No If you are a former smoker, when did you quit?: 2002 Information on smoking cessation initiated: No Hx Alcohol Use: No Drug/Substance Use Hx: No Substance Use Type: None Hx Substance Use Treatment: No <Stacia Muñiz - Last Filed: 05/02/18 19:16> <Susie Coto - Last Filed: 05/02/18 23:50> <Brooke Murray - Last Filed: 05/02/18 23:52> - Past Medical History Allergies/Adverse Reactions: Allergies Allergy/AdvReac Type Severity Reaction Status Date / Time shellfish derived Allergy Unknown Verified 02/24/18 19:20 Penicillins Allergy Hives Verified 12/31/17 17:09 Home Medications: Ambulatory Orders Insulin Degludec [Tresiba Flextouch U-100] 70 unit SQ DAILY 12/31/17 Dulaglutide [Trulicity] 1.5 mg SQ WEEKLY 01/03/18 Aspirin Coated [Ecotrin -] 81 mg PO DAILY #30 tablet.ec 01/04/18 Metformin HCl [Glucophage] 500 mg PO BID 02/24/18 Atorvastatin Ca [Lipitor] 80 mg PO HS tablet 02/28/18 Albuterol Sulfate Inhaler - [Ventolin HFA Inhaler -] 2 inh PO Q4H PRN #1 inhaler 04/16/18 Ticagrelor [Brilinta] 90 mg PO BID 05/02/18 Review of Systems - Review of Systems Constitutional: No: Symptoms Reported, See HPI, Chills, Diaphoresis, Fever, Loss of Appetite, Malaise, Night Sweats, Weakness, Weight Stable, Unintentional Wgt. Loss, Unexplained wgt Loss, Other HEENTM: No: Symptoms Reported, See HPI, Eye Pain, Blurred Vision, Tearing, Recent change in vision, Double Vision, Cataracts, Ear Pain, Ocular Prothesis, Ear Discharge, Nose Pain, Nose Congestion, Tinnitus, Nose Bleeding, Hearing Loss , Throat Pain, Throat Swelling, Mouth Pain, Dental Problems, Difficulty Swallowing, Mouth Swelling, Other Respiratory: No: Symptoms reported, See HPI, Cough, Orthopnea, Shortness of Breath, SOB with Exertion, SOB at Rest, Stridor, Wheezing, Productive cough, Hemoptysis, Other Cardiac (ROS): Yes: Chest Pain. No: Symptoms Reported, See HPI, Edema, Irregular Heart Rate, Lightheadedness, Palpitations, Syncope, Chest Tightness, Other ABD/GI: No: Symptoms Reported, See HPI, Abdominal Distended, Abd. Pain w/ defecation, Blood Streaked Bowels, Constipated, Diarrhea, Difficulty Swallowing , Nausea, Poor Appetite, Poor Fluid Intake, Rectal Bleeding, Vomiting, Indigestion, Abdominal cramping, Tarry Stools, Other : No: Symptoms Reported, See HPI, Burning, Dysuria, Discharge, Frequency, Flank Pain, Hematuria, Incontinence, Pain, Urgency, Testicular Mass, Testicular Swelling, Lesions, Testicular Pain, Other Musculoskeletal: No: Symptoms Reported, See HPI, Back Pain, Gout, Joint Pain, Joint Swelling, Muscle Pain, Muscle Weakness, Neck Pain, Joint Stiffness, Other Integumentary: No: Symptoms Reported, See HPI, Bruising, Change in Color, Change in Hair/Nails, Dryness, Erythema, Flushing, Lesions, Lumps, Pallor, Pruritus, Rash, Sweating, Other Neurological: No: Symptoms reported, See HPI, Headache, Numbness, Paresthesia, Pre-Existing Deficit, Seizure, Tingling, Tremors, Weakness, Unsteady Gait, Ataxia, Dizziness, Other Psychiatric: No: Anxiety, Depression, Frequent Crying, Stressors, Sleep Pattern Change, Emotional Problems, Mood Swings, Change in Appetite, Other Endocrine: No: Symptoms Reported, See HPI, Excessive Sweating, Flushing, Intolerance to Cold, Intolerance to Heat, Increased Hunger, Increased Thirst, Increased Urine, Unexplained Weight Gain, Unexplained Weight Loss, Change in Weight, Other Hematologic/Lymphatic: No: Symptoms Reported, See HPI, Anemia, Blood Clots, Easy Bleeding, Easy Bruising, Bleeding Diathesis, Lymph Node Abnormalities, Swollen Glands, Other All Other Systems: Reviewed and Negative <Brooke Murray - Last Filed: 05/02/18 23:52> *Physical Exam - Vital Signs Last Vital Signs Temp Pulse Resp BP Pulse Ox 97.8 F 108 H 20 156/50 L 99 05/02/18 18:41 05/02/18 18:41 05/02/18 18:41 05/02/18 18:41 05/02/18 18:41 <Stacia Muñiz - Last Filed: 05/02/18 19:16> - Vital Signs Last Vital Signs Temp Pulse Resp BP Pulse Ox 97.8 F 104 H 16 127/53 L 100 05/02/18 18:41 05/02/18 23:09 05/02/18 23:09 05/02/18 23:09 05/02/18 23:09 <Susie Coto - Last Filed: 05/02/18 23:50> - Vital Signs Last Vital Signs Temp Pulse Resp BP Pulse Ox 97.8 F 108 H 20 156/50 L 99 05/02/18 18:41 05/02/18 18:41 05/02/18 18:41 05/02/18 18:41 05/02/18 18:41 - Physical Exam General Appearance: Yes: Nourished HEENT: positive: EOMI, MARIAMA, Normal ENT Inspection, Normal Voice, Symmetrical, TMs Normal, Pharynx Normal Neck: positive: Trachea midline, Normal Thyroid, Supple Respiratory/Chest: positive: Lungs Clear, Normal Breath Sounds Cardiovascular: positive: Regular Rhythm, Regular Rate Gastrointestinal/Abdominal: positive: Normal Bowel Sounds, Soft Musculoskeletal: positive: Normal Inspection Extremity: positive: Normal Capillary Refill, Normal Inspection, Normal Range of Motion Integumentary: positive: Normal Color, Dry, Warm Neurologic: positive: lead cook II-XII NML intact, Fully Oriented, Alert, Normal Mood/ Affect, Normal Response, Motor Strength 5/5 <Brooke Murray - Last Filed: 05/02/18 23:52> ED Treatment Course - LABORATORY CBC & Chemistry Diagram: 05/02/18 19:37 05/02/18 19:37 - ADDITIONAL ORDERS Additional order review: Laboratory Results 05/02/18 05/02/18 05/02/18 22:30 21:40 21:20 PT with INR INR Sodium Potassium Chloride Carbon Dioxide Anion Gap BUN Creatinine Creat Clearance w eGFR POC Glucometer [phone] Random Glucose Calcium Total Bilirubin AST ALT Alkaline Phosphatase Troponin I 0.24 H Total Protein Albumin Urine Color Urine Appearance Urine pH Ur Specific [place] Urine Protein Urine Glucose (UA) Urine Ketones Urine Blood Urine Nitrite Urine Bilirubin Urine Urobilinogen Ur Leukocyte Esterase Acetone, Qual Negative L Blood Type 05/02/18 05/02/18 05/02/18 20:54 19:37 19:37 PT with INR 11.5 INR 1.03 Sodium Potassium Chloride Carbon Dioxide Anion Gap BUN Creatinine Creat Clearance w eGFR POC Glucometer Random Glucose Calcium Total Bilirubin AST ALT Alkaline Phosphatase Troponin I Total Protein Albumin Urine Color Yellow Urine Appearance Clear Urine pH 6.0 Ur Specific [place] 1.010 Urine Protein Negative Urine Glucose (UA) 3+ H Urine Ketones Negative Urine Blood Negative Urine Nitrite Negative Urine Bilirubin Negative Urine Urobilinogen 0.2 Ur Leukocyte Esterase Negative Acetone, Qual Blood Type A POSITIVE 05/02/18 05/02/18 19:37 19:37 PT with INR INR Sodium 134 L Potassium 4.6 Chloride 101 Carbon Dioxide 23 Anion Gap 10 BUN 17 Creatinine 0.9 Creat Clearance w eGFR > 60 POC Glucometer Random Glucose 565 H* D Calcium 8.9 Total Bilirubin 0.3 AST 23 D ALT 24 D Alkaline Phosphatase 97 H Troponin I 0.16 H Total Protein 6.2 L Albumin 3.2 L Urine Color Urine Appearance Urine pH Ur Specific [place] Urine Protein Urine Glucose (UA) Urine Ketones Urine Blood Urine Nitrite Urine Bilirubin Urine Urobilinogen Ur Leukocyte Esterase Acetone, Qual Blood Type 05/02/18 05/02/18 21:40 19:37 RBC 2.95 L MCV 78.3 L MCHC 30.3 L RDW 15.3 D MPV 11.6 H Neutrophils % 68.0 Lymphocytes % 21.9 Monocytes % 7.7 Eosinophils % 1.7 Basophils % 0.7 POC Glucometer [phone] - Medications Given in the ED: ED Medications Discontinued Medications Generic Name Dose Route Start Last Admin Trade Name Freq PRN Reason Stop Dose Admin Aspirin 162 mg 05/02/18 23:34 05/02/18 23:37 Asa - PO 05/02/18 23:35 162 mg ONCE ONE Administration Sodium Chloride 500 mls @ 500 mls/hr 05/02/18 20:49 05/02/18 20:55 Normal Saline - IV 05/02/18 21:48 500 mls/hr ASDIR STA Administration Insulin Human Regular 12 units 05/02/18 20:16 05/02/18 20:22 Novolin R Vial *For Ivpush Or Iv Drip Only* IVPUSH 05/02/18 20:17 12 unit ONCE ONE Administration <Susie Coto - Last Filed: 05/02/18 23:50> - LABORATORY CBC & Chemistry Diagram: 05/02/18 19:37 05/02/18 19:37 <Brooke Murray - Last Filed: 05/02/18 23:52> Medical Decision Making - Medical Decision Making 05/02/[address] Vivar, case was discussed and made aware to admit patient. 11:30pm Call placed to [facility] transfer center. Made aware to fax EKG and Face Sheets, both were faxed. Awaiting call back from inside sales specialist. 05/02/18 23:51 Case discussed with inside sales specialist, Dr. Armando, case accepted. <Brooke Murray - Last Filed: 05/02/18 23:52> *DC/Admit/Observation/Transfer <Stacia Muñiz - Last Filed: 05/02/18 19:16> <Susie Coto - Last Filed: 05/02/18 23:50> - Attestations Scribe Attestion: 05/02/18 19:27 Documentation prepared by Brooke Murray, acting as medical technician for Stacia Muñiz MD. <Brooke Murray - Last Filed: 05/02/18 23:52> Diagnosis at time of Disposition: Hyperglycemia Chest pain Qualifiers: Chest pain type: unspecified Qualified Code(s): R07.9 - Chest pain, unspecified Anemia Qualifiers: Anemia type: unspecified type Qualified Code(s): D64.9 - Anemia, unspecified - Discharge Dispostion Condition at time of disposition: Stable
--- NOTE | 2018-05-02 19:36 | PDOC ---
*Physical Exam - Vital Signs Last Vital Signs Temp Pulse Resp BP Pulse Ox 97.8 F 108 H 20 156/50 L 99 05/02/18 18:41 05/02/18 18:41 05/02/18 18:41 05/02/18 18:41 05/02/18 18:41 ED Treatment Course - LABORATORY CBC & Chemistry Diagram: 05/02/18 19:37 05/02/18 19:37 Progress Note - Progress Note Progress Note: Care of this patient received from Dr. Muñiz. This 72-year-old woman has been having chest pain for weeks. She had stent placed at [facility] in December of this year. A staged PCI was planned for March but was on hold because of her marked anemia. Hematologic workup was apparently being performed. She sent here by Dr. Vivar because of persistent pain and because of the possibility of profound anemia. Although the patient presented with chest pain, most of it had resolved prior to my evaluation. Laboratory values notable for hemoglobin of 7.0 grams/DL and hematocrit of 23.1% . Glucose is also found to be markedly elevated at 565 milligrams/DL (urine ketones as well as serum acetone negative) Patient states that she had been taking a lot of "juice" to increase her hemoglobin/hematocrit; she knew that this juice had added sugar and attributes this to her marked hyperglycemia. She states that she regularly monitors her fingerstick sugar and does not ever recall value being this high. Troponin was elevated at 0.16 Portable chest x-ray performed: Preliminary reading -No evidence of CHF/ infiltrate/effusions or other acute pulmonary processes. Normal saline at 250 ML/hour for 2 hours administered Decision to admit the patient was then made and telemetry bed at [facility] planned. [facility]. Supervisory nursing staff contacted regarding telemetry bed at [facility]: All beds filled but some transfers possible. After 3 hours, second troponin drawn: This revealed a rise to 0.24. No telemetry bed available at [facility]; unclear status of ICU beds. Because of the rise in troponin and possibility that patient would not have monitored bed for the next several hours, it is in the patient's best interest to be transferred to tertiary care center where cardiac catheterization is possible. Situation discussed with Dr. Vivar's partner who is linen controller (Dr. Paris). Although he would prefer to keep the patient in the [facility] system, in light of the rising troponin and bed situation, transfer is in patient's best interest. [facility] service also contacted and they also agree to the transfer to [facility]. [facility] transfer Center contacted and case discussed with cardiothoracic fellow. Patient is accepted on to the cardiology service with as attending. Results and plan discussed with the patient who understands and agrees. Patient transferred via ALS ground transportation to [facility] in stable condition. *DC/Admit/Observation/Transfer Diagnosis at time of Disposition: Hyperglycemia Chest pain Qualifiers: Chest pain type: unspecified Qualified Code(s): R07.9 - Chest pain, unspecified Anemia Qualifiers: Anemia type: unspecified type Qualified Code(s): D64.9 - Anemia, unspecified - Discharge Dispostion Condition at time of disposition: Stable - Referrals - Patient Instructions - Post Discharge Activity
[2018-05-02 19:49] LABS: BASO % 0.7 % (0-2.0); EOS % 1.7 % (0-4.5); HEMATOCRIT 23.1 % (32.4-45.2); LYMPH % 21.9 % (8-40); MCH 23.8 pg (25.7-33.7); MCHC 30.3 g/dl (32.0-36.0); MEAN CELL VOLUME 78.3 fl (80-96); MEAN PLT VOLUME 11.6 fl (7.5-11.1); MONO % 7.7 % (3.8-10.2); PLATELET COUNT 285 K/MM3 (134-434); RBC 2.95 M/mm3 (3.60-5.2); RDW 15.3 % (11.6-15.6); WHITE BLOOD COUNT 8.5 K/mm3 (4.0-10.8)
[2018-05-02 19:55] LABS: INR 1.03 (0.82-1.09); PROTHROMBIN TIME (PATIENT) 11.5 SEC (10.2-13.0)
[2018-05-02 20:00] LABS: ALBUMIN 3.2 g/dl (3.5-5.0); ALK PHOS 97 U/L (32-92); ANION GAP 10 MMOL/L (8-16); BILIRUBIN,TOTAL 0.3 mg/dl (0.2-1.0); BLOOD UREA NITROGEN 17 mg/dl (7-18); CALCIUM 8.9 mg/dl (8.4-10.2); CHLORIDE 101 mmol/L (98-107); CO2 23 mmol/L (22-28); CREATININE 0.9 mg/dl (0.6-1.3); POTASSIUM 4.6 mmol/L (3.5-5.1); SGOT/AST 23 U/L (10-42); SGPT/ALT 24 U/L (10-40); SODIUM 134 mmol/L (136-145); TOT PROT 6.2 g/dl (6.4-8.3)
[2018-05-02 20:07] LABS: GLUCOSE,RANDOM 565 mg/dl (74-106)
[2018-05-02 20:59] LABS: URINE APPEARANCE Clear; URINE BILIRUBIN Negative (NEGATIVE); URINE COLOR Yellow; URINE GLUCOSE (UA) 3+ (NEGATIVE); URINE KETONE Negative (NEGATIVE); URINE LEUK ESTERASE Negative (NEGATIVE); URINE NITRITE Negative (NEGATIVE); URINE PROTEIN Negative (NEGATIVE); URINE UROBILINOGEN 0.2 (0.2-1.0)
[2018-05-02 23:10] VITALS: PULSE 104
[2018-05-03 00:25] VITALS: BP 129/53
--- NOTE | 2018-05-03 10:00 | CON.CARD ---
Consult Consult Specialty:: cardiology Reason for Consultation:: chest pain - History of Present Illness History of Present Illness: The patient is a 72 year old white female, with a significant past medical history of CAD-->multiple coronary stents and balloon angioplasty (the latest at [facility]; Dr. Milad Vizcarra, interventionalist; presently on ASA and Brilinta), ?bronchial asthma, anemia-->PRBCs recently, HTN, hypercholesterolemia, diabetes, anxeity/depression, who presents to the emergency department with acute on chronic chest pain. The patient describes her chest pain as similar to chronic chest pain which she has been having for years. The patient notes that when she took her nitroglycerin at work months ago she fainted. Further PCI was being planned by Dr. Vizcarra; anemia workup was in progress. She denies recent fevers, chills, headache or dizziness. She denies recent nausea, vomit, diarrhea or constipation. She denies recent dysuria, frequency, urgency or hematuria. She denies recent shortness of breath. Allergies: shellfish, Penicillins Social history: Nonsmoker. Denies EtOH use and recreational drug use. Equipment Associate: Dr. Vivar - History Source History Provided By: Medical Record Limitations to Obtaining History: Poor Historian - Past Medical History Cardio/Vascular: Yes: CAD (3 prior stents), HTN Pulmonary: Yes: Asthma Gastrointestinal: Yes: Gastritis, GI Bleed Renal/: No: Renal Failure Reproductive: Yes: Postmenopausal ...: No Heme/Onc: Yes: Anemia Psych: Yes: Anxiety, Depression - Alcohol/Substance Use Hx Alcohol Use: No - Smoking History Smoking history: Never smoked Have you smoked in the past 12 months: No If you are a former smoker, when did you quit?: 2002 - Social History Usual Living Arrangement: Alone Home Medications - Allergies Allergies/Adverse Reactions: Allergies Allergy/AdvReac Type Severity Reaction Status Date / Time shellfish derived Allergy Unknown Verified 02/24/18 19:20 Penicillins Allergy Hives Verified 12/31/17 17:09 - Home Medications Home Medications: Ambulatory Orders Insulin Degludec [Tresiba Flextouch U-100] 70 unit SQ DAILY 12/31/17 Dulaglutide [Trulicity] 1.5 mg SQ WEEKLY 01/03/18 Aspirin Coated [Ecotrin -] 81 mg PO DAILY #30 tablet.ec 01/04/18 Metformin HCl [Glucophage] 500 mg PO BID 02/24/18 Atorvastatin Ca [Lipitor] 80 mg PO HS tablet 02/28/18 Albuterol Sulfate Inhaler - [Ventolin HFA Inhaler -] 2 inh PO Q4H PRN #1 inhaler 04/16/18 Ticagrelor [Brilinta] 90 mg PO BID 05/02/18 Family Disease History - Family Disease History Family Disease History: Diabetes: Father, Mother (parents had MIs in their 70s) , Heart Disease: Father, Mother Review of Systems - Review of Systems Constitutional: reports: Weakness Eyes: reports: No Symptoms HENT: reports: No Symptoms Neck: reports: No Symptoms Cardiovascular: reports: Chest Pain Respiratory: reports: No Symptoms Gastrointestinal: reports: Indigestion Psychiatric: reports: Anxiety, Depression Vital Signs: Vital Signs Temperature 97.8 F 05/02/18 18:41 Pulse Rate 104 H 05/03/18 00:23 Respiratory Rate 16 05/03/18 00:23 Blood Pressure 129/53 L 05/03/18 00:23 O2 Sat by Pulse Oximetry (%) 100 05/03/18 00:23 - Other Data Labs, Other Data: CBC, BMP 05/02/18 19:37 05/02/18 19:37 INR, PTT INR 1.03 (0.82-1.09) 05/02/18 19:37 Troponin, BNP 05/02/18 05/02/18 19:37 22:30 Troponin I 0.16 H 0.24 H Troponin, BNP 05/02/18 05/02/18 19:37 22:30 Troponin I 0.16 H 0.24 H Problem List - Problems (1) Anemia Assessment/Plan: Marked anemia, with hx PRBCs only a few months ago. F/u stool guaiac F/u with hematologits. Pt is on both ASA and Brilinta for coronary stent earlier this year (summer). Code(s): D64.9 - ANEMIA, UNSPECIFIED Qualifiers: Anemia type: unspecified type Qualified Code(s): D64.9 - Anemia, unspecified (2) Chest pain Code(s): R07.9 - CHEST PAIN, UNSPECIFIED Qualifiers: Chest pain type: unspecified Qualified Code(s): R07.9 - Chest pain, unspecified (3) Hyperglycemia Code(s): R73.9 - HYPERGLYCEMIA, UNSPECIFIED (4) Diabetes Code(s): E11.9 - TYPE 2 DIABETES MELLITUS WITHOUT COMPLICATIONS (5) Elevated troponin Assessment/Plan: TNI 0.16 (was 0.03 on 02/25/18); add CK (and CK MB, if appropriate). F/u TNI serially (and begin by repeating TNI and EKG within the hour, given ongoing chest pain, to r/o acute STEMI requiring immediate transfer for emergency coronary angiogram). Continue statin (atorvastatin 80 mg daily). Problematic using beta blockers, given hx bronchial asthma. On ASA and Brilinta; adding IV heparin problematic given profound anemia. Agree with ICU admission if hemodynamics remain stable; if chest pain continues and/or TNI rises, or Hb has further decrease, would transfer to [facility] emergently. Code(s): R74.8 - ABNORMAL LEVELS OF OTHER SERUM ENZYMES (6) GERD (gastroesophageal reflux disease) Code(s): K21.9 - GASTRO-ESOPHAGEAL REFLUX DISEASE WITHOUT ESOPHAGITIS (7) H/O heart artery stent Code(s): Z95.5 - PRESENCE OF CORONARY ANGIOPLASTY IMPLANT AND GRAFT (8) HTN (hypertension) Code(s): I10 - ESSENTIAL (PRIMARY) HYPERTENSION (9) Hyperlipidemia Code(s): E78.5 - HYPERLIPIDEMIA, UNSPECIFIED (10) Obesity Code(s): E66.9 - OBESITY, UNSPECIFIED Qualifiers: Obesity type: due to excess calories Body mass index: BMI 30.0-30.9 (11) Syncope Code(s): R55 - SYNCOPE AND COLLAPSE
--- NOTE | 2018-05-03 16:12 | EKG ---
Test Reason : Blood Pressure : / mmHG Vent. Rate : 102 BPM Atrial Rate : 102 BPM P-R Int : 286 ms QRS Dur : 100 ms QT Int : 328 ms P-R-T Axes : 034 061 211 degrees QTc Int : 427 ms SINUS TACHYCARDIA WITH 1ST DEGREE A-V BLOCK MARKED ST ABNORMALITY, POSSIBLE ANTERIOR SUBENDOCARDIAL INJURY ABNORMAL ECG Confirmed by MD Carmen Edward ([id number]) on 05/03/2018 4:12:18 PM Referred By: MD HERNANDEZ Confirmed By:mW Carmen MD
[2018-05-04 08:07] LABS: SERUM IRON SATURATION 6 % (15-55); TOTAL IRON BINDING CAPACITY 459 ug/dL (250-450); UIBC 433 ug/dL (118-369)
--- NOTE | 2018-05-09 23:53 | EKG ---
Test Reason : Blood Pressure : / mmHG Vent. Rate : 110 BPM Atrial Rate : 110 BPM P-R Int : 254 ms QRS Dur : 100 ms QT Int : 458 ms P-R-T Axes : 063 069 168 degrees QTc Int : 619 ms SINUS TACHYCARDIA WITH 1ST DEGREE A-V BLOCK LEFT VENTRICULAR HYPERTROPHY WITH REPOLARIZATION ABNORMALITY PROLONGED QT ABNORMAL ECG WHEN COMPARED WITH ECG OF 24-FEB-2018 21:35, ST NOW DEPRESSED IN INFERIOR LEADS ST MORE DEPRESSED IN ANTERIOR LEADS QT HAS LENGTHENED Confirmed by MIKI MUHAMMAD, TED ([id number]) on 05/09/2018 11:53:29 PM Referred By: DR BLAKE Confirmed By:TED LIVINGSTON MD
== END | disposition home or self-care (01) ==
LOC: FER 18:41
PROC: 3E033VG Introduction of Insulin into Peripheral Vein, Percutaneous Approach (ICD-10-PCS; principal; 2018-05-02)
PROC: 3E0337Z Introduction of Electrolytic and Water Balance Substance into Peripheral Vein, Percutaneous Approach (ICD-10-PCS; 2018-05-02)
DX: E11.65 Type 2 diabetes mellitus with hyperglycemia (principal); R07.9 Chest pain, unspecified; D64.9 Anemia, unspecified; I10 Essential (primary) hypertension; E78.00 Pure hypercholesterolemia, unspecified; Z95.5 Presence of coronary angioplasty implant and graft; J45.909 Unspecified asthma, uncomplicated
CPT/HCPCS: 36415; 71045-TC-FY; 80053; 81003; 82009; 82728; 82962; 83540; 83550; 84484; 85025; 85610; 86850; 86900; 86901; 87086; 93005; 99285-25

== ENCOUNTER 2021-12-05 07:17 | Inpatient (IN) | payer OTHER ==
[2021-12-05 09:11] LABS: BASO % 0.6 % (0-2.0); EOS % 1.3 % (0-4.5); MEAN PLT VOLUME 9.9 fl (7.5-11.1); RDW 17.3 % (11.6-15.6)
[2021-12-05 09:14] LABS: HEMATOCRIT 28.4 % (32.4-45.2); HEMOGLOBIN 8.9 GM/dL (10.7-15.3); LYMPH % 6.7 % (8-40); MCHC 31.3 g/dl (32.0-36.0); MEAN CELL VOLUME 83.3 fl (80-96); MONO % 7.2 % (3.8-10.2); NEUT % 84.2 % (42.8-82.8); PLATELET COUNT 275 10^3/uL (134-434); RBC 3.41 M/mm3 (3.60-5.2); WHITE BLOOD COUNT 9.1 K/mm3 (4.0-10.0)
[2021-12-05 09:18] LABS: INR 1.2 (0.83-1.09); PROTHROMBIN TIME (PATIENT) 13.8 SEC (9.7-13.0)
[2021-12-05 09:21] LABS: ACTIVATED PTT 27.1 SECONDS (25.2-36.5)
[2021-12-05 09:31] LABS: CALCIUM 8.9 mg/dL (8.5-10.1)
[2021-12-05 09:32] LABS: ALBUMIN 3.1 g/dl (3.4-5.0); BLOOD UREA NITROGEN 45.4 mg/dL (7-18)
[2021-12-05 09:35] LABS: CREATININE 1.1 mg/dL (0.55-1.3)
[2021-12-05 09:37] LABS: BILIRUBIN,TOTAL 0.8 mg/dL (0.2-1); TOT PROT 6.4 g/dl (6.4-8.2)
[2021-12-05 09:40] LABS: N-TERMINAL BNP 6483.8 pg/ml (5-450)
[2021-12-05] MEDS ORDERED: FUROSEMIDE 40 MG/4 ML INJECTABLE VIAL IVPUSH ONE (10:24)
[2021-12-05] MEDS ORDERED: CEFTRIAXONE 1,000 MG in DEXTROSE 5%-WATER - 50 ML IVPB ONE (10:24)
[2021-12-05] MEDS ORDERED: CEFTRIAXONE 1 GM/50 ML BAG ONE (10:45)
[2021-12-05] MEDS ORDERED: FUROSEMIDE 40 MG/4 ML INJECTABLE VIAL ONE (10:46)
[2021-12-05 13:06] LABS: EPI CELLS 23 /uL (0-25.1); HYALINE CASTS 1 /uL (0-3.1); URINE APPEARANCE CLEAR; URINE BACTERIA 120 /uL (0-1359); URINE BILIRUBIN NEGATIVE (NEGATIVE); URINE COLOR YELLOW; URINE GLUCOSE (UA) NEGATIVE (NEGATIVE); URINE KETONE NEGATIVE (NEGATIVE); URINE LEUK ESTERASE 1+ (NEGATIVE); URINE NITRITE NEGATIVE (NEGATIVE); URINE PROTEIN TRACE (NEGATIVE); URINE RBC 2 /uL (0-23.9); URINE UROBILINOGEN 0.2 mg/dL (0.2-1.0); URINE WBC 36 /uL (0-25.8)
[2021-12-05] MEDS: FUROSEMIDE 40 MG/4 ML INJECTABLE VIAL IVPUSH SCH (15:30)
[2021-12-05] MEDS: INSULIN SLIDING SCALE (NOVOLOG) 1 VIAL SQ SCH ×2 (18:10→22:42)
[2021-12-05] MEDS ORDERED: TICAGRELOR 90 MG TABLET PO ONE (22:17)
[2021-12-05] MEDS ORDERED: ATORVASTATIN CA 80 MG TABLET (FP) ONE (22:17)
[2021-12-05] MEDS: TICAGRELOR 90 MG TABLET PO SCH (22:49)
[2021-12-05] MEDS: ATORVASTATIN CA 80 MG TABLET (FP) PO SCH (22:49)
[2021-12-05] MEDS ORDERED: ALBUTEROL SO4 HFA INHALER IH PRN (22:58)
[2021-12-06] MEDS ORDERED: ALBUTEROL SO4 HFA INHALER IH ONE (00:53)
[2021-12-06] MEDS ORDERED: ALBUTEROL SO4 0.083% IH SOL 2.5 MG/3 ML VIAL.NEB. NEB ONE (01:38)
[2021-12-06] MEDS: ALBUTEROL SO4 0.083% IH SOL 2.5 MG/3 ML VIAL.NEB. NEB PRN ×2 (01:43→22:28)
[2021-12-06] MEDS: INSULIN SLIDING SCALE (NOVOLOG) 1 VIAL SQ SCH ×4 (07:45→22:17)
[2021-12-06 08:04] LABS: BASO % 0.5 % (0-2.0); EOS % 1.9 % (0-4.5); HEMOGLOBIN 8.2 GM/dL (10.7-15.3); LYMPH % 6.6 % (8-40); MCH 26.3 pg (25.7-33.7); MCHC 31.6 g/dl (32.0-36.0); MEAN CELL VOLUME 83.3 fl (80-96); MEAN PLT VOLUME 10.1 fl (7.5-11.1); MONO % 8.7 % (3.8-10.2); NEUT % 82.3 % (42.8-82.8); PLATELET COUNT 268 10^3/uL (134-434); RBC 3.12 M/mm3 (3.60-5.2); RDW 17.2 % (11.6-15.6); WHITE BLOOD COUNT 8.5 K/mm3 (4.0-10.0)
[2021-12-06] MEDS ORDERED: TICAGRELOR 90 MG TABLET PO ONE (08:23)
[2021-12-06] MEDS ORDERED: CEFTRIAXONE 1 GM/50 ML BAG ONE (08:23)
[2021-12-06] MEDS ORDERED: FUROSEMIDE 40 MG/4 ML INJECTABLE VIAL ONE (08:23)
[2021-12-06] MEDS ORDERED: ASPIRIN COATED 81 MG TABLET.EC ONE (08:23)
[2021-12-06 08:32] LABS: CALCIUM 8.7 mg/dL (8.5-10.1)
[2021-12-06 08:33] LABS: ALBUMIN 2.9 g/dl (3.4-5.0); BLOOD UREA NITROGEN 44.7 mg/dL (7-18)
[2021-12-06 08:36] LABS: CREATININE 1.2 mg/dL (0.55-1.3)
[2021-12-06 08:37] LABS: BILIRUBIN,TOTAL 0.5 mg/dL (0.2-1); TOT PROT 5.9 g/dl (6.4-8.2)
[2021-12-06] MEDS: FUROSEMIDE 40 MG/4 ML INJECTABLE VIAL IVPUSH SCH (10:00)
[2021-12-06] MEDS: CEFTRIAXONE 1 GM in DEXTROSE 5%-WATER - 50 ML IVPB SCH (10:00)
[2021-12-06] MEDS: ASPIRIN COATED 81 MG TABLET.EC PO SCH (10:00)
[2021-12-06] MEDS: TICAGRELOR 90 MG TABLET PO SCH ×2 (10:00→22:05)
[2021-12-06 16:46] VITALS: BMI 32.4
[2021-12-06] MEDS: ATORVASTATIN CA 80 MG TABLET (FP) PO SCH (22:05)
[2021-12-06] MEDS: SACUBITRIL/VALSARTAN 24 MG-26 MG TABLET PO SCH (22:06)
[2021-12-06] MEDS: CARVEDILOL 6.25 MG TABLET (FP) PO SCH (22:08)
[2021-12-06] MEDS: ACETAMINOPHEN 325 MG TABLET (FP) PO PRN (23:42)
[2021-12-07] MEDS: INSULIN SLIDING SCALE (NOVOLOG) 1 VIAL SQ SCH ×4 (06:29→22:33)
[2021-12-07] MEDS: ALBUTEROL SO4 0.083% IH SOL 2.5 MG/3 ML VIAL.NEB. NEB PRN (06:30)
[2021-12-07] MEDS: ACETAMINOPHEN 325 MG TABLET (FP) PO PRN ×2 (06:32→23:30)
[2021-12-07 07:32] LABS: BASO % 0.8 % (0-2.0); EOS % 3.5 % (0-4.5); HEMATOCRIT 25.9 % (32.4-45.2); HEMOGLOBIN 8.2 GM/dL (10.7-15.3); LYMPH % 11.9 % (8-40); MCH 26.1 pg (25.7-33.7); MCHC 31.4 g/dl (32.0-36.0); MEAN CELL VOLUME 82.9 fl (80-96); MEAN PLT VOLUME 9.9 fl (7.5-11.1); MONO % 8.3 % (3.8-10.2); NEUT % 75.5 % (42.8-82.8); PLATELET COUNT 245 10^3/uL (134-434); RBC 3.13 M/mm3 (3.60-5.2); RDW 17.2 % (11.6-15.6); WHITE BLOOD COUNT 7.3 K/mm3 (4.0-10.0)
[2021-12-07 07:54] LABS: BLOOD UREA NITROGEN 46.6 mg/dL (7-18)
[2021-12-07 07:56] LABS: CREATININE 1.1 mg/dL (0.55-1.3)
[2021-12-07 07:59] LABS: CALCIUM 8.8 mg/dL (8.5-10.1)
[2021-12-07 08:02] LABS: BILIRUBIN,TOTAL 0.6 mg/dL (0.2-1)
[2021-12-07] MEDS ORDERED: cefTRIAXone SODIUM 1 GM VIAL ONE (08:50)
[2021-12-07] MEDS ORDERED: DEXTROSE 5%-WATER - 50 ML IVPB ONE (08:51)
[2021-12-07] MEDS: ASPIRIN COATED 81 MG TABLET.EC PO SCH (09:21)
[2021-12-07] MEDS: SACUBITRIL/VALSARTAN 24 MG-26 MG TABLET PO SCH ×2 (09:21→22:20)
[2021-12-07] MEDS: FUROSEMIDE 40 MG/4 ML INJECTABLE VIAL IVPUSH SCH (09:21)
[2021-12-07] MEDS: CARVEDILOL 6.25 MG TABLET (FP) PO SCH ×2 (09:21→22:20)
[2021-12-07] MEDS: TICAGRELOR 90 MG TABLET PO SCH ×2 (09:21→22:33)
[2021-12-07] MEDS: CEFTRIAXONE 1 GM in DEXTROSE 5%-WATER - 50 ML IVPB SCH (09:22)
[2021-12-07] MEDS: SPIRONOLACTONE 25 MG TABLET PO SCH (11:57)
[2021-12-07] MEDS: ATORVASTATIN CA 80 MG TABLET (FP) PO SCH (22:20)
[2021-12-08] MEDS: INSULIN SLIDING SCALE (NOVOLOG) 1 VIAL SQ SCH ×4 (06:54→21:38)
[2021-12-08 08:25] LABS: BASO % 0.8 % (0-2.0); EOS % 3.9 % (0-4.5); HEMATOCRIT 28.4 % (32.4-45.2); HEMOGLOBIN 8.8 GM/dL (10.7-15.3); LYMPH % 10.9 % (8-40); MEAN CELL VOLUME 83.9 fl (80-96); MEAN PLT VOLUME 10.5 fl (7.5-11.1); MONO % 7.6 % (3.8-10.2); NEUT % 76.8 % (42.8-82.8); PLATELET COUNT 276 10^3/uL (134-434); RBC 3.39 M/mm3 (3.60-5.2); RDW 16.8 % (11.6-15.6); WHITE BLOOD COUNT 7.5 K/mm3 (4.0-10.0)
[2021-12-08 08:45] LABS: BLOOD UREA NITROGEN 56.9 mg/dL (7-18); CALCIUM 8.6 mg/dL (8.5-10.1)
[2021-12-08 08:46] LABS: ALBUMIN 2.8 g/dl (3.4-5.0)
[2021-12-08 08:49] LABS: CREATININE 1.2 mg/dL (0.55-1.3)
[2021-12-08 08:50] LABS: BILIRUBIN,TOTAL 0.5 mg/dL (0.2-1); TOT PROT 5.8 g/dl (6.4-8.2)
[2021-12-08] MEDS ORDERED: cefTRIAXone SODIUM 1 GM VIAL ONE (08:51)
[2021-12-08] MEDS ORDERED: DEXTROSE 5%-WATER - 50 ML IVPB ONE (08:51)
[2021-12-08] MEDS: ASPIRIN COATED 81 MG TABLET.EC PO SCH (09:28)
[2021-12-08] MEDS: CARVEDILOL 6.25 MG TABLET (FP) PO SCH ×2 (09:28→21:35)
[2021-12-08] MEDS: SACUBITRIL/VALSARTAN 24 MG-26 MG TABLET PO SCH ×2 (09:28→21:34)
[2021-12-08] MEDS: TICAGRELOR 90 MG TABLET PO SCH ×2 (09:29→21:34)
[2021-12-08] MEDS: FUROSEMIDE 40 MG/4 ML INJECTABLE VIAL IVPUSH SCH (09:29)
[2021-12-08] MEDS: CEFTRIAXONE 1 GM in DEXTROSE 5%-WATER - 50 ML IVPB SCH (09:29)
[2021-12-08] MEDS: SPIRONOLACTONE 25 MG TABLET PO SCH (09:29)
[2021-12-08] MEDS: ALBUTEROL SO4 0.083% IH SOL 2.5 MG/3 ML VIAL.NEB. NEB PRN (16:59)
[2021-12-08] MEDS: ATORVASTATIN CA 80 MG TABLET (FP) PO SCH (21:35)
[2021-12-09] MEDS: INSULIN SLIDING SCALE (NOVOLOG) 1 VIAL SQ SCH ×4 (06:06→21:19)
[2021-12-09 08:08] LABS: BASO % 0.7 % (0-2.0); EOS % 2.8 % (0-4.5); HEMATOCRIT 28.9 % (32.4-45.2); LYMPH % 10.6 % (8-40); MCHC 31.4 g/dl (32.0-36.0); MEAN CELL VOLUME 82.8 fl (80-96); NEUT % 77.9 % (42.8-82.8); PLATELET COUNT 302 10^3/uL (134-434); RBC 3.48 M/mm3 (3.60-5.2); RDW 16.6 % (11.6-15.6); WHITE BLOOD COUNT 7.5 K/mm3 (4.0-10.0)
[2021-12-09] MEDS ORDERED: FUROSEMIDE 40 MG/4 ML INJECTABLE VIAL IVPUSH SCH (08:25)
[2021-12-09 08:39] LABS: ALBUMIN 3.1 g/dl (3.4-5.0); BLOOD UREA NITROGEN 48.3 mg/dL (7-18); CALCIUM 9.1 mg/dL (8.5-10.1)
[2021-12-09 08:45] LABS: BILIRUBIN,TOTAL 0.5 mg/dL (0.2-1); TOT PROT 6.1 g/dl (6.4-8.2)
[2021-12-09] MEDS ORDERED: cefTRIAXone SODIUM 1 GM VIAL ONE (09:53)
[2021-12-09] MEDS ORDERED: DEXTROSE 5%-WATER - 50 ML IVPB ONE (09:53)
[2021-12-09] MEDS: ASPIRIN COATED 81 MG TABLET.EC PO SCH (10:00)
[2021-12-09] MEDS: SACUBITRIL/VALSARTAN 24 MG-26 MG TABLET PO SCH ×2 (10:00→21:15)
[2021-12-09] MEDS: SPIRONOLACTONE 25 MG TABLET PO SCH (10:00)
[2021-12-09] MEDS: TICAGRELOR 90 MG TABLET PO SCH ×2 (10:00→21:15)
[2021-12-09] MEDS: CARVEDILOL 6.25 MG TABLET (FP) PO SCH ×2 (10:00→21:15)
[2021-12-09] MEDS: CEFTRIAXONE 1 GM in DEXTROSE 5%-WATER - 50 ML IVPB SCH (10:01)
[2021-12-09 18:06] VITALS: TEMP 98.4
[2021-12-09 20:10] VITALS: BP 122/56; PULSE 90
[2021-12-09] MEDS: ATORVASTATIN CA 80 MG TABLET (FP) PO SCH (21:15)
== END 2021-12-10 00:29 | disposition short-term general hospital (02) | DRG 291 ==
LOC: JER 07:17 → JERBED 10:26 → J4W 12-06 16:00
PROVIDERS: ADMIT Internal Medicine
DX: I11.0 Hypertensive heart disease with heart failure (principal); I50.23 Acute on chronic systolic (congestive) heart failure; J98.11 Atelectasis; I31.3 Pericardial effusion (noninflammatory); K21.9 Gastro-esophageal reflux disease without esophagitis; E78.5 Hyperlipidemia, unspecified; E11.9 Type 2 diabetes mellitus without complications; D64.9 Anemia, unspecified; F41.8 Other specified anxiety disorders; I27.20 Pulmonary hypertension, unspecified; I08.3 Combined rheumatic disorders of mitral, aortic and tricuspid valves; I25.119 Atherosclerotic heart disease of native coronary artery with unspecified angina pectoris; E66.9 Obesity, unspecified; Z68.32 Body mass index [BMI] 32.0-32.9, adult; Z95.5 Presence of coronary angioplasty implant and graft; Z95.0 Presence of cardiac pacemaker
CPT/HCPCS: 36415; 71045-TC-FY; 71250-TC; 80053; 80061; 81003; 82962; 83036; 83880; 84443; 84484; 85025; 85610; 85730; 86850; 86900; 86901; 87086; 93005; 93010; 93306-TC; 93970-TC; 94640; 99285-25; C9803-CS; U0003; U0005